=== PATIENT | female | born 1945 | race Caucasian/White ===

== ENCOUNTER 2017-01-23 12:34 | Observation (INO) | payer MEDICARE, BC ==
[~2017-01-23] VITALS: Ht 165.1 cm; Wt 104.0 kg
[~2017-01-23 12:34] MED LIST: ADULT ASPIRIN L81 MG PO; ALEVE220 M2 PO; ANTIVERT12.5 MG PO; ANTIVERT25 MG PO; ASPIRIN EC325 MG PO; ASPIRIN EC81 MG PO; CARB/LEVO1 TA5 PO; CENTRUM SILVER1 TAB PO; CIPRO XR500 MG PO; CIPROFLOXACN500 MG PO; CYCLOBENZAPR10 MG PO; DOXYCYCL HYC100 MG PO; FLAGYL500 MG PO; FLEXERIL PO; HYDROCHL PO; HYDROCHLOROT25 MG PO; IMODIUM2 MG PO; INDERAL LA120 M1 PO; ISOSORB MONO30 MG PO; LEXAPRO10 MG PO; LEXAPRO20 MG PO; LISINOP/HCTZ1 TA2 PO; LISINOPRIL20 M1 PO; LISINOPRIL20 MG PO; LORTAB 7.5 PO; METRONIDAZOL500 MG PO; NITROSTAT0.4 MG SL; PERCOCET 10/31 COMBO PO; PHENERGAN25 MG/TAB PO; PROPRANOLOL PO; PROPRANOLOL120 MG PO; TRAMADOL HCL50 MG PO; ZESTRIL/PRI20 MG/TAB PO; ZOFRAN4 MG/TAB PO; [UNRECOGNIZED DRUG - CODE] MT
--- NOTE | 2017-01-23 12:34 | NUR ---
pt toroomf or treatmnt viaems
[2017-01-23 13:22] LABS: HEMATOCRIT 54.9 % (37.0-47.0); HEMOGLOBIN 18.1 g/dl (12.0-16.0); IMMATURE GRANULOCYTES 0.5 % (0.0-1.0); MEAN CELL VOLUME 88.8 fL CALC (80.0-100.0); MEAN CORPUSCULAR HGB 29.3 pG CALC (26.0-32.0); NEUT# 12.09 thou/uL (2.00-7.15); RED BLOOD COUNT 6.18 mill/uL (4.20-5.60)
[2017-01-23 13:41] LABS: ALBUMIN 4.7 g/dL (3.2-5.0); ALKALINE PHOSPHATASE 162 u/l (38-126); AMYLASE 101 u/l (30-110); ANION GAP 24 (6-22 (CALC)); BILIRUBIN, TOTAL 0.9 mg/dL (0.0-1.4); BUN 13 mg/dL (8-23); BUN/CREATININE RATIO 17 (12-20 (CALC)); CARBON DIOXIDE 21 mmol/l (22-30); CHLORIDE 100 mmol/l (95-108); CREATININE 0.7 mg/dL (0.5-1.0); GFR > 60 ML/MIN (>=60 (CALC)); GFR FOR AFR.AMER. > 60 ML/MIN (>=60 (CALC)); GLUCOSE 152 mg/dL (82-115); LIPASE 276 u/l (23-300); POTASSIUM 5.3 mmol/l (3.5-5.1); SGOT/AST 35 u/l (9-36); SGPT/ALT 19 u/l (11-66); SODIUM 140 mmol/l (137-146); TOTAL PROTEIN 8.8 g/dL (6.3-8.2)
[2017-01-23 13:53] LABS: MYOGLOBIN 53 ng/mL (0 - 62)
[2017-01-23] MEDS ORDERED: MELOXICAM15 MG PO (15:25)
--- NOTE | 2017-01-23 15:53 | NUR ---
PT AND VISITOR UPDATED ON KNOWN RESULTS THEY CAME UP, PT AWARE OF PENDING ADMISSION.
[2017-01-23 16:45] VITALS: BP 158/91
--- NOTE | 2017-01-23 16:49 | NUR ---
PT TAKEN TO ROOM 273 WITHOUT INCIDENT, REPORT WAS TO SWAPNIL WILSON.
--- NOTE | 2017-01-23 17:00 | NUR ---
PT ARRIVED VIA STRETCHER ACCOMPANIED BY STAFF. IV SITE IS FREE FROM REDNESS OR EDEMA. PT NEEDED ANGELI CARE WHEN SHE ARRIVED.
--- NOTE | 2017-01-23 17:15 | NUR ---
ASSESSMENT IS COMPLETED NO DISTRESS NOTED. IV SITE IS FREE FROM REDNESS OR EDMEA. CONTINUE TO OSBERVE AND MONTIOR.
--- NOTE | 2017-01-23 17:45 | NUR ---
SPOKE WITH RE: MEAL FOR PT. NEW ORDER FOR FULL LIQUID DIET. INFORMED PT.
[2017-01-23 18:55] VITALS: BP 156/88
--- NOTE | 2017-01-23 21:00 | NUR ---
PT ASSISTED FROM SHOWER TO BED WITH STEADY GAIT;NEW GOWN AND LINENS PROVIDED;IV SITE TO RFA AND EMS SITE TO LFA FLUSHED AND PATENT;TELE MONITOR IN PLACE READING SR 71;PT REQUESTS PRN PAIN MEDICATION FOR RIGHT KNEE PAIN RATING 6/10 ON THE PAIN SCALE;PT TO BE MEDICATED ACCORDINGLY PER MD ORDERS;ASSESSMENT COMPLETED;SKIN INTACT;PT RE-EDUCATED ON ROOM AND CALL LIGHT SYSTEM AND VERBALIZES UNDERSTANDING;PT DENIES ANY OTHER NEEDS AT THIS TIME;SAFETY PRECAUTIONS REINFORCED;PT TOLD TO CALL FOR ASSISTANCE IF NEEDED;BED IN LOWEST POSITION WITH CALL LIGHT IN REACH;WILL CONTINUE TO MONITOR
--- NOTE | 2017-01-23 23:30 | NUR ---
PT APPEARS TO BE SLEEPING IN SEMI FOWLERS POSITION;NO S/S OF DISTRESS NOTED;RESPIRATIONS EVEN AND UNLABORED ON RA;IV FLUIDS INFUSING WELL TO LH;TELE MONITOR IN PLACE;BED IN LOWEST POSITION WITH CALL LIGHT IN REACH;WILL CONTINUE TO MONITOR
[2017-01-24] VITALS: BP 153/80
--- NOTE | 2017-01-24 03:45 | NUR ---
PT APPEARS TO BE SLEEPING IN SEMI FOWLERS POSITION;IV FLUIDS INFUSING WELL AT THIS TIME;TELE MONITOR IN PLACE;NO S/S OF DISTRESS NOTED;RESPIRATIONS EVEN AND UNLABORED ON RA;FALL PRECAUTIONS IN PLACE;BED IN LOWEST POSITION WITH CALL LIGHT IN REACH;WILL CONTINUE TO MONITOR
[2017-01-24 04:10] VITALS: BP 164/77
[2017-01-24 04:59] LABS: HEMATOCRIT 41.3 % (37.0-47.0); HEMOGLOBIN 13.4 g/dl (12.0-16.0); IMMATURE GRANULOCYTES 0.3 % (0.0-1.0); MEAN CORPUSCULAR HGB 29.8 pG CALC (26.0-32.0); MEAN CORPUSCULAR HGB CONC 32.4 g/L CALC (32.0-36.0); NEUT# 9.04 thou/uL (2.00-7.15); RED BLOOD COUNT 4.49 mill/uL (4.20-5.60); RED CELL DISTRI WIDTH 12.9 % (11.5-15.5)
[2017-01-24 05:14] LABS: ANION GAP 13 (6-22 (CALC)); BUN 12 mg/dL (8-23); BUN/CREATININE RATIO 20 (12-20 (CALC)); CALCIUM 9.1 mg/dL (8.4-10.2); CARBON DIOXIDE 22 mmol/l (22-30); CHLORIDE 106 mmol/l (95-108); CREATININE 0.6 mg/dL (0.5-1.0); GFR > 60 ML/MIN (>=60 (CALC)); GFR FOR AFR.AMER. > 60 ML/MIN (>=60 (CALC)); GLUCOSE 90 mg/dL (82-115); POTASSIUM 4.2 mmol/l (3.5-5.1); SODIUM 137 mmol/l (137-146)
[2017-01-24] MEDS ORDERED: CIPROFLOXACN500 MG PO (06:48)
[2017-01-24] MEDS ORDERED: METRONIDAZOL500 MG PO (06:49)
--- NOTE | 2017-01-24 07:00 | NUR ---
SHIFT CHANGE REPORT FROM FRANSISCO LÓPEZ AWAKE ALERT AND ORIENTED SITTING UP IN RECLINER, NO C/O DISCOMFORT AT THIS TIME, TELE MONITOR IN PLACE. CALL LEE IN REACH.
[2017-01-24] MEDS ORDERED: ZOFRAN ODT4 MG PO (07:52)
[2017-01-24 08:23] VITALS: BP 141/89
[2017-01-24 08:27] VITALS: BP 141/89
[2017-01-24 09:54] LABS: URINE BILIRUBIN - DIPSTICK NEGATIVE (NEGATIVE); URINE BLOOD DIPSTICK NEGATIVE (NEGATIVE); URINE CLARITY CLEAR; URINE COLOR YELLOW; URINE GLUCOSE - DIPSTICK NEGATIVE (NEGATIVE); URINE KETONE NEGATIVE (NEGATIVE); URINE LEUK ESTERASE NEGATIVE (NEGATIVE); URINE NITRITE - DIPSTICK NEGATIVE (Negative); URINE PROTEIN - DIPSTICK NEGATIVE (NEG-TRACE); URINE UROBILINOGEN - DIPSTICK 0.2 E.U./dL (0.2)
--- NOTE | 2017-01-24 11:06 | NUR ---
Discharge instructions given. Patient verbalizes understanding of same. Discharged in good condition via Wheelchair to Home with family. All belongings sent with pt.
== END 2017-01-24 11:05 | disposition home or self-care (01) ==
LOC: ENPENDDIS → ED 12:34 → ED-I 15:23 → ED 15:44 → MS2 15:45
PROVIDERS: Emergency Medicine; ADMIT Internal Medicine; ATTEND Internal Medicine
DX: K57.32 Diverticulitis of large intestine without perforation or abscess without bleeding (principal); I10 Essential (primary) hypertension; E11.9 Type 2 diabetes mellitus without complications; F32.9 Major depressive disorder, single episode, unspecified; M19.90 Unspecified osteoarthritis, unspecified site; G25.0 Essential tremor
CPT/HCPCS: J1650; Q9967

== ENCOUNTER 2017-04-19 10:29 | Inpatient (IN) | payer MEDICARE, BC ==
[~2017-04-19] VITALS: Ht 165.1 cm; Wt 104.6 kg
[2017-04-19] VITALS (10 sets, daily range): BP systolic 117–156; BP diastolic 68–100
[~2017-04-19 10:29] MED LIST changes: +MELOXICAM15 MG PO; +ZOFRAN ODT4 MG PO
[2017-04-19 11:04] LABS: HEMATOCRIT 46.3 % (37.0-47.0); IMMATURE GRANULOCYTES 0.2 % (0.0-1.0); MEAN CELL VOLUME 90.3 fL CALC (80.0-100.0); MEAN CORPUSCULAR HGB 29.2 pG CALC (26.0-32.0); MEAN CORPUSCULAR HGB CONC 32.4 g/L CALC (32.0-36.0); NEUT# 8.4 thou/uL (2.00-7.15); RED BLOOD COUNT 5.13 mill/uL (4.20-5.60); RED CELL DISTRI WIDTH 13.2 % (11.5-15.5)
[2017-04-19 11:19] LABS: PROTHROMBIN TIME 10.6 SECONDS (9.0-12.5)
[2017-04-19 11:22] LABS: ALBUMIN 4.1 g/dL (3.2-5.0); ALKALINE PHOSPHATASE 145 u/l (38-126); ANION GAP 14 (6-22 (CALC)); BILIRUBIN, TOTAL 0.6 mg/dL (0.0-1.4); BUN 18 mg/dL (8-23); BUN/CREATININE RATIO 31 (12-20 (CALC)); CALCIUM 9.3 mg/dL (8.4-10.2); CARBON DIOXIDE 25 mmol/l (22-30); CHLORIDE 103 mmol/l (95-108); CREATININE 0.6 mg/dL (0.5-1.0); GFR > 60 ML/MIN (>=60 (CALC)); GFR FOR AFR.AMER. > 60 ML/MIN (>=60 (CALC)); GLUCOSE 117 mg/dL (82-115); POTASSIUM 4.4 mmol/l (3.5-5.1); SGOT/AST 37 u/l (9-36); SGPT/ALT 42 u/l (11-66); SODIUM 138 mmol/l (137-146); TOTAL PROTEIN 7.6 g/dL (6.3-8.2)
[2017-04-19 11:34] LABS: MYOGLOBIN 31 ng/mL (0 - 62)
[2017-04-19 12:12] LABS: URINE BILIRUBIN - DIPSTICK NEGATIVE (NEGATIVE); URINE BLOOD DIPSTICK NEGATIVE (NEGATIVE); URINE CLARITY CLEAR; URINE COLOR YELLOW; URINE GLUCOSE - DIPSTICK NEGATIVE (NEGATIVE); URINE KETONE NEGATIVE (NEGATIVE); URINE LEUK ESTERASE NEGATIVE (NEGATIVE); URINE NITRITE - DIPSTICK NEGATIVE (Negative); URINE PH 5.5 (4.5-8.0); URINE PROTEIN - DIPSTICK NEGATIVE (NEG-TRACE); URINE SPECIFIC GRAVITY <=1.005; URINE UROBILINOGEN - DIPSTICK 0.2 E.U./dL (0.2)
[2017-04-20] VITALS (15 sets, daily range): BP systolic 105–167; BP diastolic 50–100
[2017-04-20 06:04] LABS: HEMATOCRIT 44.1 % (37.0-47.0); HEMOGLOBIN 14.5 g/dl (12.0-16.0); IMMATURE GRANULOCYTES 0.2 % (0.0-1.0); MEAN CELL VOLUME 90.7 fL CALC (80.0-100.0); MEAN CORPUSCULAR HGB 29.8 pG CALC (26.0-32.0); MEAN CORPUSCULAR HGB CONC 32.9 g/L CALC (32.0-36.0); NEUT# 7.51 thou/uL (2.00-7.15); RED BLOOD COUNT 4.86 mill/uL (4.20-5.60); RED CELL DISTRI WIDTH 13.2 % (11.5-15.5)
[2017-04-20 06:17] LABS: ANION GAP 14 (6-22 (CALC)); BUN 11 mg/dL (8-23); BUN/CREATININE RATIO 22 (12-20 (CALC)); CALCIUM 9.1 mg/dL (8.4-10.2); CALCULATED LDLCHOLESTEROL 88 mg/dL (62-129 (CALC)); CARBON DIOXIDE 25 mmol/l (22-30); CHLORIDE 103 mmol/l (95-108); CHOLESTEROL HDL RATIO 3.9 (<4.4 (CALC)); CREATININE 0.5 mg/dL (0.5-1.0); GFR > 60 ML/MIN (>=60 (CALC)); GFR FOR AFR.AMER. > 60 ML/MIN (>=60 (CALC)); GLUCOSE 115 mg/dL (82-115); HDL CHOLESTEROL 41 mg/dL (>=40); POTASSIUM 4.1 mmol/l (3.5-5.1); SODIUM 138 mmol/l (137-146); TOTAL CHOLESTEROL 157 mg/dl (0-199); TOTAL TRIGLYCERIDES 143 mg/dl (30-149); VLDL CHOLESTROL 29 mg/dl (1-41 (CALC))
[2017-04-20] MEDS ORDERED: DILTIAZEM CD300 MG PO (13:45)
[2017-04-20] MEDS ORDERED: ELIQUIS2.5 MG PO (13:45)
== END 2017-04-20 16:45 | disposition home or self-care (01) | DRG 310 ==
LOC: ENPENDDIS → ED 10:29 → ED-I 10:46 → ED 10:46 → ED-I 12:17 → ED 13:31 → MS2 13:32 → ICU 16:25
PROVIDERS: Emergency Medicine; ADMIT Internal Medicine; ATTEND Internal Medicine
DX: I48.92 Unspecified atrial flutter (principal); I10 Essential (primary) hypertension; M19.90 Unspecified osteoarthritis, unspecified site; F32.9 Major depressive disorder, single episode, unspecified; G47.33 Obstructive sleep apnea (adult) (pediatric); Z91.19 Patient's noncompliance with other medical treatment and regimen; Z79.82 Long term (current) use of aspirin
CPT/HCPCS: J1650

== ENCOUNTER 2017-12-30 18:19 | Inpatient (IN) | payer MEDICARE, BC ==
[~2017-12-30] VITALS: Ht 165.1 cm; Wt 100.8 kg
[~2017-12-30 18:19] MED LIST changes: +DILTIAZEM CD300 MG PO; +ELIQUIS2.5 MG PO
[2017-12-30 19:09] LABS: HEMATOCRIT 47.1 % (37.0-47.0); HEMOGLOBIN 15.2 g/dl (12.0-16.0); IMMATURE GRANULOCYTES 0.3 % (0.0-1.0); MEAN CELL VOLUME 88.7 fL CALC (80.0-100.0); MEAN CORPUSCULAR HGB 28.6 pG CALC (26.0-32.0); MEAN CORPUSCULAR HGB CONC 32.3 g/L CALC (32.0-36.0); NEUT# 7.48 thou/uL (2.00-7.15); RED BLOOD COUNT 5.31 mill/uL (4.20-5.60); RED CELL DISTRI WIDTH 13.6 % (11.5-15.5)
[2017-12-30 19:16] LABS: ANION GAP 17 (6-22 (CALC)); BUN 13 mg/dL (8-23); BUN/CREATININE RATIO 22 (12-20 (CALC)); CARBON DIOXIDE 25 mmol/l (22-30); CHLORIDE 102 mmol/l (95-108); CREATININE 0.6 mg/dL (0.5-1.0); GFR > 60 ML/MIN (>=60 (CALC)); GFR FOR AFR.AMER. > 60 ML/MIN (>=60 (CALC)); POTASSIUM 4.3 mmol/l (3.5-5.1); SODIUM 140 mmol/l (137-146)
[2017-12-30 22:00] VITALS: BP 154/84
[2017-12-30 22:10] VITALS: BP 154/84
[2017-12-30 22:28] LABS: URINE BILIRUBIN - DIPSTICK NEGATIVE (NEGATIVE); URINE BLOOD DIPSTICK NEGATIVE (NEGATIVE); URINE COLOR YELLOW; URINE GLUCOSE - DIPSTICK NEGATIVE (NEGATIVE); URINE KETONE TRACE mg/dL (NEGATIVE); URINE LEUK ESTERASE NEGATIVE (NEGATIVE); URINE NITRITE - DIPSTICK NEGATIVE (Negative); URINE PH 7.5 (4.5-8.0); URINE PROTEIN - DIPSTICK NEGATIVE (NEG-TRACE); URINE UROBILINOGEN - DIPSTICK 0.2 E.U./dL (0.2)
[2017-12-30 22:36] LABS: URINE CLARITY CLEAR
[2017-12-31 00:24] VITALS: BP 147/67
[2017-12-31 04:19] VITALS: BP 126/68
[2017-12-31 05:20] VITALS: BP 126/68
[2017-12-31 06:09] LABS: HEMATOCRIT 44.7 % (37.0-47.0); HEMOGLOBIN 14.6 g/dl (12.0-16.0); MEAN CELL VOLUME 89.8 fL CALC (80.0-100.0); MEAN CORPUSCULAR HGB 29.3 pG CALC (26.0-32.0); MEAN CORPUSCULAR HGB CONC 32.7 g/L CALC (32.0-36.0); RED BLOOD COUNT 4.98 mill/uL (4.20-5.60); RED CELL DISTRI WIDTH 13.6 % (11.5-15.5)
[2017-12-31 06:16] LABS: ANION GAP 14 (6-22 (CALC)); BUN 10 mg/dL (8-23); BUN/CREATININE RATIO 18 (12-20 (CALC)); CALCULATED LDLCHOLESTEROL 87 mg/dL (62-129 (CALC)); CARBON DIOXIDE 25 mmol/l (22-30); CHLORIDE 104 mmol/l (95-108); CHOLESTEROL HDL RATIO 4.2 (<4.4 (CALC)); CREATININE 0.5 mg/dL (0.5-1.0); GFR > 60 ML/MIN (>=60 (CALC)); GFR FOR AFR.AMER. > 60 ML/MIN (>=60 (CALC)); HDL CHOLESTEROL 39 mg/dL (>=40); POTASSIUM 3.6 mmol/l (3.5-5.1); SODIUM 140 mmol/l (137-146); TOTAL CHOLESTEROL 163 mg/dl (0-199); TOTAL TRIGLYCERIDES 184 mg/dl (30-149); VLDL CHOLESTROL 37 mg/dl (0-48 (CALC))
[2017-12-31 06:23] LABS: INTERNATIONAL NORMALIZED RATIO 2.9 RATIO (0.7-1.3); PROTHROMBIN TIME 33.5 SECONDS (9.0-12.5)
[2017-12-31 07:35] VITALS: BP 121/72
[2017-12-31 11:16] VITALS: BP 126/79
[2017-12-31] MEDS ORDERED: COUMADIN5 MG PO (11:38)
[2017-12-31] MEDS ORDERED: SLOW-MAG PO (12:07)
[2017-12-31] MEDS ORDERED: METO50TA52 PO (12:24)
[2017-12-31] MEDS ORDERED: WARFARIN4 MG PO (12:24)
[2017-12-31] MEDS ORDERED: DIGOXIN0.125 MG PO (12:25)
[2017-12-31] MEDS ORDERED: ANTIVERT PO (13:36)
== END 2017-12-31 14:24 | disposition home or self-care (01) | DRG 149 ==
LOC: ED 18:19 → ED-I 20:20 → ED 21:00 → MS2 21:01
PROVIDERS: Family Medicine; ADMIT Internal Medicine; ATTEND Internal Medicine
DX: R42 Dizziness and giddiness (principal); I48.2 Chronic atrial fibrillation; I10 Essential (primary) hypertension; F32.9 Major depressive disorder, single episode, unspecified; G47.33 Obstructive sleep apnea (adult) (pediatric); G25.0 Essential tremor; I16.0 Hypertensive urgency; M19.90 Unspecified osteoarthritis, unspecified site; Z79.01 Long term (current) use of anticoagulants

== ENCOUNTER → 2018-12-09 | Outpatient (REF) | payer MEDICARE, BC ==
[~2018-12-09] MED LIST changes: +ANTIVERT PO; +COUMADIN5 MG PO; +DIGOXIN0.125 MG PO; +METO50TA52 PO; +SLOW-MAG PO; +WARFARIN4 MG PO
[2018-12-09 08:13] LABS: HEMATOCRIT 47.5 % (37.0-47.0); HEMOGLOBIN 15.4 g/dl (12.0-16.0); MEAN CELL VOLUME 93.7 fL CALC (80.0-100.0); MEAN CORPUSCULAR HGB 30.4 pG CALC (26.0-32.0); MEAN CORPUSCULAR HGB CONC 32.4 g/L CALC (32.0-36.0); RED BLOOD COUNT 5.07 mill/uL (4.20-5.60); RED CELL DISTRI WIDTH 13.1 % (11.5-15.5)
[2018-12-09 08:31] LABS: ANION GAP 14 (6-22 (CALC)); BUN 15 mg/dL (8-23); BUN/CREATININE RATIO 25 (12-20 (CALC)); CALCULATED LDLCHOLESTEROL 109 mg/dL (62-129 (CALC)); CARBON DIOXIDE 26 mmol/l (22-30); CHLORIDE 101 mmol/l (95-108); CHOLESTEROL HDL RATIO 4.3 (<4.4 (CALC)); CREATININE 0.6 mg/dL (0.5-1.0); GFR > 60 ML/MIN (>=60 (CALC)); GFR FOR AFR.AMER. > 60 ML/MIN (>=60 (CALC)); HDL CHOLESTEROL 44 mg/dL (>=40); POTASSIUM 4.1 mmol/l (3.5-5.1); SODIUM 137 mmol/l (137-146); TOTAL CHOLESTEROL 189 mg/dl (0-199); TOTAL TRIGLYCERIDES 175 mg/dl (30-149); VLDL CHOLESTROL 35 mg/dl (0-48 (CALC))
[2018-12-09 08:37] LABS: INTERNATIONAL NORMALIZED RATIO 2.2 RATIO (0.7-1.3); PROTHROMBIN TIME 22.7 SECONDS (9.0-12.5)
== END | disposition home or self-care (01) ==
LOC: LAB 07:47
PROVIDERS: ATTEND Nurse Practitioner Family
DX: E11.29 Type 2 diabetes mellitus with other diabetic kidney complication (principal); E11.42 Type 2 diabetes mellitus with diabetic polyneuropathy; I10 Essential (primary) hypertension; I48.0 Paroxysmal atrial fibrillation; Z79.01 Long term (current) use of anticoagulants

== ENCOUNTER 2019-08-16 18:33 | Observation (INO) | payer MEDICARE, BC ==
[2019-08-15 23:30] VITALS: BP 152/101
[~2019-08-16] VITALS: Ht 165.1 cm; Wt 100.5 kg
[2019-08-16 19:19] LABS: HEMATOCRIT 45.6 % (37.0-47.0); HEMOGLOBIN 14.6 g/dl (12.0-16.0); IMMATURE GRANULOCYTES 0.5 % (0.0-5.0); MEAN CELL VOLUME 92.9 fL CALC (80.0-100.0); MEAN CORPUSCULAR HGB 29.7 pG CALC (26.0-32.0); NEUT# 6.82 thou/uL (2.00-7.15); RED BLOOD COUNT 4.91 mill/uL (4.20-5.60); RED CELL DISTRI WIDTH 13.3 % (11.5-15.5)
[2019-08-16 19:33] LABS: ALBUMIN 4.1 g/dL (3.2-5.0); ALKALINE PHOSPHATASE 152 u/l (38-126); AMYLASE 59 u/l (30-110); BUN 14 mg/dL (8-23); BUN/CREATININE RATIO 20 (12-20 (CALC)); CARBON DIOXIDE 25 mmol/l (22-30); CHLORIDE 98 mmol/l (95-108); CREATININE 0.7 mg/dL (0.5-1.0); GFR > 60 ML/MIN (>=60 (CALC)); GFR FOR AFR.AMER. > 60 ML/MIN (>=60 (CALC)); LIPASE 197 u/l (23-300); SGOT/AST 34 u/l (9-36); SODIUM 139 mmol/l (137-146); TOTAL PROTEIN 7.6 g/dL (6.3-8.2)
[2019-08-16 19:34] LABS: ANION GAP 20 (6-22 (CALC)); BILIRUBIN, TOTAL 0.9 mg/dL (0.0-1.4); POTASSIUM 3.5 mmol/l (3.5-5.1)
[2019-08-16 19:45] LABS: MYOGLOBIN 40 ng/mL (0 - 62)
[2019-08-16 19:51] LABS: PROTHROMBIN TIME 10.5 SECONDS (9.0-12.5)
[2019-08-16 22:49] LABS: URINE BILIRUBIN - DIPSTICK NEGATIVE (NEGATIVE); URINE COLOR YELLOW; URINE GLUCOSE - DIPSTICK NEGATIVE (NEGATIVE); URINE KETONE NEGATIVE (NEGATIVE); URINE LEUK ESTERASE NEGATIVE (NEGATIVE); URINE PROTEIN - DIPSTICK NEGATIVE (NEG-TRACE); URINE SPECIFIC GRAVITY <=1.005; URINE UROBILINOGEN - DIPSTICK 0.2 E.U./dL (0.2)
[2019-08-16 22:55] LABS: URINE NITRITE - DIPSTICK POSITIVE (Negative)
[2019-08-16 22:56] LABS: URINE BLOOD DIPSTICK NEGATIVE (NEGATIVE)
[2019-08-16 22:58] LABS: URINE BACTERIA MODERATE hpf; URINE EPITHELIAL CELLS FEW EPI/hpf (0-FEW)
[2019-08-16 23:15] VITALS: BP 153/101
[2019-08-16 23:30] VITALS: BP 174/95
[2019-08-16 23:45] VITALS: BP 185/119
[2019-08-17] VITALS (11 sets, daily range): BP systolic 119–188; BP diastolic 70–101
[2019-08-17 05:06] LABS: IMMATURE GRANULOCYTES 0.4 % (0.0-5.0); MEAN CELL VOLUME 93.2 fL CALC (80.0-100.0); MEAN CORPUSCULAR HGB 29.5 pG CALC (26.0-32.0); MEAN CORPUSCULAR HGB CONC 31.7 g/L CALC (32.0-36.0); NEUT# 6.88 thou/uL (2.00-7.15); RED BLOOD COUNT 4.13 mill/uL (4.20-5.60); RED CELL DISTRI WIDTH 13.4 % (11.5-15.5)
[2019-08-17 05:07] LABS: HEMATOCRIT 38.5 % (37.0-47.0); HEMOGLOBIN 12.2 g/dl (12.0-16.0)
[2019-08-17 05:26] LABS: ALKALINE PHOSPHATASE 99 u/l (38-126); ANION GAP 9 (6-22 (CALC)); BUN 11 mg/dL (8-23); BUN/CREATININE RATIO 16 (12-20 (CALC)); CARBON DIOXIDE 25 mmol/l (22-30); CHLORIDE 109 mmol/l (95-108); CREATININE 0.7 mg/dL (0.5-1.0); GFR > 60 ML/MIN (>=60 (CALC)); GFR FOR AFR.AMER. > 60 ML/MIN (>=60 (CALC)); SGOT/AST 28 u/l (9-36); SODIUM 140 mmol/l (137-146)
[2019-08-17 05:30] LABS: ALBUMIN 2.9 g/dL (3.2-5.0); BILIRUBIN, TOTAL 0.5 mg/dL (0.0-1.4); TOTAL PROTEIN 5.8 g/dL (6.3-8.2)
[2019-08-17] MEDS ORDERED: SINEMET CR PO (13:34)
[2019-08-17] MEDS ORDERED: CENTRUM SILVER1 TA1 PO (13:35)
[2019-08-17] MEDS ORDERED: CARTIA XT120 MG PO (13:36)
[2019-08-17] MEDS ORDERED: TRAMADOL HYDROC50 M1 PO (13:36)
[2019-08-17] MEDS ORDERED: DIGOXIN0.125 MG PO (13:37)
[2019-08-17] MEDS ORDERED: METOPROLOL50 M1 PO (13:37)
[2019-08-17] MEDS ORDERED: LISINOPRIL20 M1 PO (13:38)
[2019-08-17] MEDS ORDERED: LIPITOR20 M1 PO (13:40)
[2019-08-17] MEDS ORDERED: CLONIDINE0.1 MG PO (13:42)
[2019-08-17] MEDS ORDERED: SERTRALINE50 MG PO (13:43)
[2019-08-17] MEDS ORDERED: SLOW-MAG PO (13:44)
[2019-08-17] MEDS ORDERED: AMIODARONE200 MG PO (14:01)
[2019-08-17] MEDS ORDERED: ASPIRIN ADULT L81 M2 PO (14:03)
[2019-08-18] VITALS (8 sets, daily range): BP systolic 145–186; BP diastolic 72–100
[2019-08-18 05:09] LABS: HEMOGLOBIN 12.5 g/dl (12.0-16.0); MEAN CELL VOLUME 95.5 fL CALC (80.0-100.0); MEAN CORPUSCULAR HGB 29.8 pG CALC (26.0-32.0); MEAN CORPUSCULAR HGB CONC 31.3 g/L CALC (32.0-36.0); RED BLOOD COUNT 4.19 mill/uL (4.20-5.60)
[2019-08-18 05:23] LABS: ANION GAP 11 (6-22 (CALC)); BUN 7 mg/dL (8-23); BUN/CREATININE RATIO 11 (12-20 (CALC)); CARBON DIOXIDE 22 mmol/l (22-30); CHLORIDE 112 mmol/l (95-108); CREATININE 0.6 mg/dL (0.5-1.0); GFR > 60 ML/MIN (>=60 (CALC)); GFR FOR AFR.AMER. > 60 ML/MIN (>=60 (CALC)); POTASSIUM 3.4 mmol/l (3.5-5.1); SODIUM 141 mmol/l (137-146)
[2019-08-19 00:12] VITALS: BP 158/96
[2019-08-19 05:05] VITALS: BP 158/92
[2019-08-19 06:31] VITALS: BP 152/89
[2019-08-19 08:37] VITALS: BP 180/104
== END 2019-08-19 11:12 | disposition home health service (06) ==
LOC: ED 18:33 → ED-I 21:49 → ED 22:10 → ICU 22:11 → MS2 22:11 → ICU 22:11 → MS2 08-17 09:35
PROVIDERS: Emergency Medicine; Internal Medicine; ADMIT Internal Medicine; ATTEND Internal Medicine
PROC: 0T9B70Z Drainage of Bladder with Drainage Device, Via Natural or Artificial Opening (ICD-10-PCS; principal; 2019-08-16)
DX: R07.2 Precordial pain (principal); I16.0 Hypertensive urgency; I10 Essential (primary) hypertension; K52.9 Noninfective gastroenteritis and colitis, unspecified; E11.9 Type 2 diabetes mellitus without complications; R68.0 Hypothermia, not associated with low environmental temperature; E87.2 Acidosis; I25.10 Atherosclerotic heart disease of native coronary artery without angina pectoris; I48.20 Chronic atrial fibrillation, unspecified; E87.6 Hypokalemia; M19.90 Unspecified osteoarthritis, unspecified site; G47.33 Obstructive sleep apnea (adult) (pediatric); G25.0 Essential tremor; Z95.1 Presence of aortocoronary bypass graft
CPT/HCPCS: G0378; J2060; Q9967; S0164

== ENCOUNTER 2020-04-04 11:36 | Emergency (ER) | payer MEDICARE, BC ==
[~2020-04-04] VITALS: Ht 165.1 cm; Wt 93.1 kg
[~2020-04-04 11:36] MED LIST changes: +AMIODARONE200 MG PO; +ASPIRIN ADULT L81 M2 PO; +CARTIA XT120 MG PO; +CENTRUM SILVER1 TA1 PO; +CLONIDINE0.1 MG PO; +LIPITOR20 M1 PO; +METFORMIN HCL1000 MG PO; +SERTRALINE50 MG PO; +SINEMET 25/2501 TAB PO; +SINEMET PO; +TOPROL XL25 M1 PO; +TRAMADOL HYDROC50 M1 PO; +TYLENOL500 MG PO
[2020-04-04] MEDS ORDERED: CALTRAT1 PO (11:54)
[2020-04-04] MEDS ORDERED: CLOPIDOGREL75 MG PO (11:55)
[2020-04-04 12:27] LABS: HEMATOCRIT 39.8 % (37.0-47.0); HEMOGLOBIN 13.2 g/dl (12.0-16.0); IMMATURE GRANULOCYTES 0.3 % (0.0-5.0); MEAN CELL VOLUME 90.7 fL CALC (80.0-100.0); MEAN CORPUSCULAR HGB 30.1 pG CALC (26.0-32.0); MEAN CORPUSCULAR HGB CONC 33.2 g/dL CAL (32.0-36.0); NEUT# 5.73 thou/uL (2.00-7.15); RED BLOOD COUNT 4.39 mill/uL (4.20-5.60); RED CELL DISTRI WIDTH 13.2 % (11.5-15.5)
[2020-04-04 13:57] VITALS: BP 164/71
[2020-05-09] MEDS ORDERED: ZOLOFT50 MG PO (07:39)
[2020-05-09] MEDS ORDERED: ONDANSETRON4 MG PO (07:39)
== END 2020-04-04 14:09 | disposition home or self-care (01) ==
LOC: ED 11:36
PROVIDERS: Emergency Medicine
DX: S01.81XA Laceration without foreign body of other part of head, initial encounter (principal); S50.311A Abrasion of right elbow, initial encounter; S80.211A Abrasion, right knee, initial encounter; S00.31XA Abrasion of nose, initial encounter; I10 Essential (primary) hypertension; G20 Parkinson's disease; E11.9 Type 2 diabetes mellitus without complications; W01.0XXA Fall on same level from slipping, tripping and stumbling without subsequent striking against object, initial encounter; Y92.000 Kitchen of unspecified non-institutional (private) residence as the place of occurrence of the external cause; Z79.84 Long term (current) use of oral hypoglycemic drugs

== ENCOUNTER 2020-06-12 20:34 | Observation (INO) | payer MEDICARE, BC ==
[~2020-06-12] VITALS: Ht 165.1 cm; Wt 95.0 kg
[~2020-06-12 20:34] MED LIST changes: +CALTRAT1 PO; +CLOPIDOGREL75 MG PO; +ONDANSETRON4 MG PO; +ZOLOFT50 MG PO
--- NOTE | 2020-06-12 20:34 | NUR ---
PT TO ROOM 10 BY EMS FOR SUDDEN ONSET OF DIARRHEA AND GENERAL WEAKNESS.
--- NOTE | 2020-06-12 21:00 | NUR ---
PT ARRIVES BY EMS WITH COMPLAINTS OF WEAKNESS AND DIZZINESS. PT DENIES NAUSEA BUT BECAME INCONTINANT OF FECES/DIARRHEA SHE ARRIVED. AFIBRILE. STATES HAVING NAUSEA BEFORE WITH NO VOMIT. DIARRHEA EPISODES OCCURE UNCOUNTABLE AMTS OF TIMES DISCRIBED BY PT. PT IS ON 2 L OF O2 AND SPO2 AT 92% AOX4. ROM AND STRENGTH IN ALL EXTREM. NIH OF O. WILL CONTINUE TO MONTIOR.
[2020-06-12 21:06] LABS: HEMATOCRIT 44.8 % (37.0-47.0); HEMOGLOBIN 14.3 g/dl (12.0-16.0); IMMATURE GRANULOCYTES 0.6 % (0.0-5.0); MEAN CELL VOLUME 92.9 fL CALC (80.0-100.0); MEAN CORPUSCULAR HGB 29.7 pG CALC (26.0-32.0); MEAN CORPUSCULAR HGB CONC 31.9 g/dL CAL (32.0-36.0); NEUT# 6.62 thou/uL (2.00-7.15); RED BLOOD COUNT 4.82 mill/uL (4.20-5.60)
[2020-06-12 21:27] LABS: ALBUMIN 3.7 g/dL (3.2-5.0); CREATININE 1.1 mg/dL (0.5-1.0); POTASSIUM 3.4 mmol/l (3.5-5.1); TOTAL PROTEIN 7.1 g/dL (6.3-8.2)
[2020-06-12 21:31] LABS: BILIRUBIN, TOTAL 0.9 mg/dL (0.0-1.4)
[2020-06-12] MEDS ORDERED: CARTIA XT300 MG PO (21:36)
[2020-06-12] MEDS ORDERED: GABAPENTIN100 MG PO (21:40)
--- NOTE | 2020-06-12 21:49 | NUR ---
GAVE REPORT TO PASCUAL
--- NOTE | 2020-06-12 21:51 | NUR ---
TOOK OVER PT CARE FROM TERI MURO. PT STILL CURRENTLY IN CT
--- NOTE | 2020-06-12 22:50 | NUR ---
NO DIARRHEA SINCE TAKING OVER SHIFT.
--- NOTE | 2020-06-12 23:35 | NUR ---
DR PEREZ IN TO GO OVER RESULTS WITH PT.
--- NOTE | 2020-06-13 00:20 | NUR ---
REPORT GIVEN TO TERI DE LA TORRE
--- NOTE | 2020-06-13 00:50 | NUR ---
RIGHT AFTER GIVING REPORT PT CALLED STATING SHE HAD AN ACCIDENT. CLEANED PT WHO ONLY HAS SMALL AMOUNT OF LIQUID STOOL. CHANGED GOWN AND BEDDING AND TRANSPORTED PT TO FLOOR. Admission Note Report Given to: TERI DE LA TORRE Transported by: Wheelchair X Stretcher Transported with: X Nurse Transporter X Patent IV O2 Risk Analyst Location: ICU X MS2
--- NOTE | 2020-06-13 00:50 | NUR ---
PT ARRIVED TO THE MED SURG UNIT UNIT VIA STRETCHER ACCOMPANIED BY ED NURSE. DOCUMENT REVIEWER, ORIENTING NURSE AND SILVERWARE SUPERVISOR IN W/PT. DOCUMENT REVIEWER ASSISTED PT TO RESTROOM AND BACK TO BED. MOD LOOSE LIGHT BROWN STOOL OUTPUT AT THIS TIME. PT W/UNSTEADY GAIT AMBULATED BACK TO BED W/1XSTANDBY ASSISTANCE. SILVERWARE SUPERVISOR OBTAINING V/S AND PT IS BEING ORIENTED TO ROOM, CALL SYSTEM, LIGHTS, BED AND TV.
[2020-06-13 01:00] VITALS: BP 168/87
--- NOTE | 2020-06-13 01:00 | NUR ---
ASSESSMENT AND VITALS COMPLETED. PT C/O OF GENERALIZED WEAKNESS AND DIARRHEA. RESPIRATIONS ARE EVEN AND UNLABORED WITH NO DISTRESS. NO SIGNS OF ANY PAIN OR DISCOMFORTS. HEART RHYTHUM IS AFIB. BOWEL SOUNDS REACTIVE IN ALL QUADRANTS WITH NO TENDERNESS. RADIAL AND PEDAL PULSES ARE STRONG WITH NORMAL CAPILLARY REFILL. SKIN IS WARM AND DRY. BILATERAL BRUISING NOTE ON ARMS. SCAPED SIGHT ON RIGHT KNEE. 2O G IV SITE IN THE RAC FLUSHED AND APPEARS HEALTHY. IV FLUIDS INFUSING AND RUNNING AT 125 PER HR. PT EDUCATED ON REMOTE CONTROLS AND CALL LEE. WILL CONTINUE TO OBSERVE.
[2020-06-13 01:52] VITALS: BP 140/87
[2020-06-13 04:00] VITALS: BP 185/112
--- NOTE | 2020-06-13 04:10 | NUR ---
PT BP ELEVATED. PT IS SHIVERING VISIBLY, REPORTS FEELING COLD. TEMP 97.3/98.6 ORAL WARMED BLANKETS ADDED AND ROOM TURNED TO WARM. PT DENIES ANY OTHER DISTRESS OR SYMPTOMS.
[2020-06-13 04:55] VITALS: BP 150/75
--- NOTE | 2020-06-13 05:03 | NUR ---
PT SLEEPING, BP REASSESSED MANUALLY BY PATIENT TRANSPORT ORDERLY. PT REPORTED FEELING BETTER, SHE IS NOT VISIBLY SHIVERING SHE WAS EARLIER. 4 BLANKETS ARE ON PT. TEMP ORAL IS 98.3
--- NOTE | 2020-06-13 06:27 | NUR ---
PT MEDICATED ORDERS PROVIDE W/PO ANTIBIOTIC THERAPY AND LAMITROL ORDERS ALLOW. PT IS SITTING ON BSC, REPORTS MULTIPLE STOOL OUTPUT. LEFT ON COMODE AT BEDSIDE PER REQUEST AND CALL LIGHT CLOSE. PT STATED SHE WILL CALL WHEN SHE IS READY TO GET TO BED.
--- NOTE | 2020-06-13 07:15 | NUR ---
REPORT RECEIVED FROM TERI DE LA TORRE;PT RESTING IN SEMI FOWLERS POSITION;RESPIRATIONS EVEN AND UNLABORED ON RA;PT DENIES ANY CURRENT PAIN OR NEEDS;IV SITE PATENT INFUSING NS WITH EASE PER ORDER;ACCUCHECK 112, NO COVERAGE NEEDED;PT DENIES ANY ADDITIONAL NEEDS AT THIS TIME;ENCOURAGED TO CALL FOR ASSISTANCE IF NEEDED;CONTACT PLUS PRECAUTIONS IN PLACE;CALL LIGHT IN REACH;WILL CONTINUE TO MONITOR
--- NOTE | 2020-06-13 07:53 | NUR ---
PT note Patient is screened for intervention and she has no needs at this time
--- NOTE | 2020-06-13 08:33 | NUR ---
AT BEDSIDE DISCUSSING POC.
[2020-06-13 09:17] LABS: HEMOGLOBIN 13.3 g/dl (12.0-16.0); IMMATURE GRANULOCYTES 0.4 % (0.0-5.0); MEAN CELL VOLUME 93.3 fL CALC (80.0-100.0); MEAN CORPUSCULAR HGB 29.6 pG CALC (26.0-32.0); MEAN CORPUSCULAR HGB CONC 31.7 g/dL CAL (32.0-36.0); NEUT# 8.52 thou/uL (2.00-7.15); RED BLOOD COUNT 4.5 mill/uL (4.20-5.60)
[2020-06-13 09:20] VITALS: BP 128/82
--- NOTE | 2020-06-13 09:20 | NUR ---
PT RESTING IN SEMI FOWLERS POSITION,A&O X3;VS OBTAINED AND ASSESSMENT COMPLETED;PT DENIES ANY CURRENT PAIN OR DISCOMFORTS,PAIN SCALE AND REPORTING EDUCATED;RESPIRATIONS EVEN AND UNLABORED,CLEAR ON RA;ABDOMEN DISTENDED/SOFT ON PALPATION AND HYPERACTIVE IN ALL4 QUADRANTS;STRONG PEDAL PULSES;SKIN INTACT;EMS #20G TO RAC INFUSING NS @125ML/HR,SITE APPEARS HEALTHY;PT REMAINS IN CONTACT PLUS ISOLATION DUE TO CDIFF DX;PT DENIES ANY ADDITIONAL NEEDS AT THIS TIME;EDUCATED ON NEED FOR URINE SAMPLE,PT VERBALIZES UNDERSTANDING;CALL LIGHT IN REACH;WILL CONTINUE TO MONITOR
[2020-06-13] MEDS ORDERED: FIRVANQ25 MG/ML PO (09:53)
[2020-06-13 10:02] LABS: ALBUMIN 3.2 g/dL (3.2-5.0); ALKALINE PHOSPHATASE 120 u/l (38-126); ANION GAP 12 (6-22 (CALC)); BILIRUBIN, TOTAL 0.6 mg/dL (0.0-1.4); BUN 17 mg/dL (8-23); BUN/CREATININE RATIO 20 (12-20 (CALC)); CARBON DIOXIDE 26 mmol/l (22-30); CHLORIDE 103 mmol/l (95-108); CREATININE 0.9 mg/dL (0.5-1.0); GFR > 60 ML/MIN (>=60 (CALC)); GFR FOR AFR.AMER. > 60 ML/MIN (>=60 (CALC)); SGOT/AST 28 u/l (9-36); SODIUM 138 mmol/l (137-146); TOTAL PROTEIN 5.9 g/dL (6.3-8.2)
--- NOTE | 2020-06-13 10:15 | NUR ---
CRITICAL LACTIC ACID RECEIVED OF 2.0 BY AL IN THE LAB.GENESIS ANRP NOTIFIED.
--- NOTE | 2020-06-13 12:00 | NUR ---
PT RESTING IN SEMI FOWLERS POSITION;RESPIRATIONS EVEN AND UNLABORED ON RA;PT DENIES ANY CURRENT PAIN OR DISCOMFORTS;IV SITE PATENT AND 500ML BOLUS ADMINISTERED AT THIS TIME PER ORDER;ABX ADMINISTERED WELL;ASSESSMENT REMAINS UNCHANGED AT THIS TIME;PT ENCOURAGED TO CALL FOR ASSISTANCE IF NEEDED;D/C HOME PENDING LAB WORK AT 1300;CALL LIGHT IN REACH;WILL CONTINUE TO MONITOR
--- NOTE | 2020-06-13 13:05 | NUR ---
LAB AT BEDSIDE
[2020-06-13 14:00] LABS: URINE BILIRUBIN - DIPSTICK NEGATIVE (NEGATIVE); URINE BLOOD DIPSTICK NEGATIVE (NEGATIVE); URINE COLOR YELLOW; URINE GLUCOSE - DIPSTICK NEGATIVE (NEGATIVE); URINE KETONE NEGATIVE (NEGATIVE); URINE LEUK ESTERASE NEGATIVE (NEGATIVE); URINE NITRITE - DIPSTICK NEGATIVE (Negative); URINE PROTEIN - DIPSTICK NEGATIVE (NEG-TRACE); URINE UROBILINOGEN - DIPSTICK 0.2 E.U./dL (0.2)
--- NOTE | 2020-06-13 14:05 | NUR ---
PT RESTING IN SEMI FOWLERS POSITION;RESPIRATIONS REMAIN EVEN AND UNLABORED ON RA;PT DENIES ANY CURRENT PAIN OR DISCOMFORTS;UA SAMPLE COLLECTED AT THIS TIME AND SENT TO LAB;DISCHARGE INSTRUCTIONS PROVIDED AND PT ENCOURAGED TO NOT TAKE ANITDIARRHEALS, TAKE ABX FOR 10 DAYS DIRECTED,BLAND DIET, KEEP WELL HYDRATED WITH PEDILYTE AND PRACTICE GOOD HAND HYGIENE; PT VERBALIZES UNDERSTANDING AND DENIES ANY ADDITIONAL QUESTIONS OR NEEDS;IV SITE REMOVED WITH CATHETER INTACT;HOME MEDICATIONS PROVIDED BACK TO PT AT THIS TIME;PT DENIES ANY ADDITIONAL NEEDS;WHEELCHAIR TO BE PROVIDED FOR D/C HOME;FAMILY TO TRANSPORT PT HOME;WILL CONTINUE TO MONITOR
--- NOTE | 2020-06-13 14:23 | NUR ---
Discharge instructions given. Patient verbalizes understanding of same. Discharged in stable condition via Wheelchair to Home with family. All belongings sent with pt. PT TRANSPORTED TO [facility] IN STABLE CONDITION VIA WHEELCHAIR ACCOMPANIED BY WRITTER,ALL BELONGINGS LEFT WITH PT. FAMILY TO TRANSPORT PT HOME.
--- NOTE | 2020-06-14 07:45 | NUR ---
PRELIMINARY BLOOD CULTURE RESULTS CALLED TO JORDANA CONTEH. 10/17 VIALS GROWING GRAM (+) COCCI. NO NEW ORDERS, WILL WAIT FOR FINAL RESULTS.
--- NOTE | 2020-06-15 09:22 | NUR ---
FINAL BLOOD CX SHOWS STAPH HOMINIS IN 1 BOTTLE, CONTAMINANT. RESULTS REPORTED TO JORDANA. NO F/U WARRANTED
== END 2020-06-13 14:23 | disposition home or self-care (01) ==
LOC: ED 20:34 → ED-I 23:28 → ED 23:43 → MS2 23:44
PROVIDERS: Family Medicine; Nurse Practitioner Family; ADMIT Internal Medicine; ATTEND Internal Medicine
DX: A04.72 Enterocolitis due to Clostridium difficile, not specified as recurrent (principal); I10 Essential (primary) hypertension; I48.91 Unspecified atrial fibrillation; G47.33 Obstructive sleep apnea (adult) (pediatric); R78.81 Bacteremia; Z95.1 Presence of aortocoronary bypass graft; Z20.828 Contact with and (suspected) exposure to other viral communicable diseases
CPT/HCPCS: G0378; J1650

== ENCOUNTER 2020-10-02 19:10 | Emergency (ER) | payer OTHER, MEDICARE, BC ==
[~2020-10-02] VITALS: Ht 165.1 cm; Wt 95.5 kg
[~2020-10-02 19:10] MED LIST changes: +CARTIA XT300 MG PO; +FIRVANQ25 MG/ML PO; +GABAPENTIN100 MG PO
[2020-10-02 19:55] VITALS: BP 183/78
== END 2020-10-02 19:55 | disposition home or self-care (01) | DRG 605 ==
LOC: ED 19:10
DX: S00.03XA Contusion of scalp, initial encounter (principal); S50.812A Abrasion of left forearm, initial encounter; I10 Essential (primary) hypertension; E11.9 Type 2 diabetes mellitus without complications; G20 Parkinson's disease; I48.91 Unspecified atrial fibrillation; G25.0 Essential tremor; V58.5XXA Driver of pick-up truck or van injured in noncollision transport accident in traffic accident, initial encounter; Z95.1 Presence of aortocoronary bypass graft; Z95.5 Presence of coronary angioplasty implant and graft

== ENCOUNTER 2022-04-19 13:29 | Observation (INO) | payer MEDICARE, BC ==
[~2022-04-19] VITALS: Ht 165.1 cm; Wt 102.0 kg
[2022-04-19] VITALS (11 sets, daily range): BP systolic 124–176; BP diastolic 67–140
[~2022-04-19 13:29] MED LIST changes: +DILTIAZEM HCL300 M1 PO; +KAPSPARGO SPRIN25 MG; +METAMUCIL28 % PO; +MYSOLINE50 M1 PO; +NITROGLYCERIN0.3 MG; +TRAMADOL HYDROC50 M1; +TURMERIC500 M1
--- NOTE | 2022-04-19 13:29 | NUR ---
PT TRANSFERRED TO ROOM 10 FROM EMS STRETCHER. PT DRY HEAVING, NAD NOTED. JORDANA STEAM TURBINE ASSEMBLER AT BEDSIDE
[2022-04-19 13:54] LABS: HEMATOCRIT 43.3 % (37.0-47.0); IMMATURE GRANULOCYTES 0.3 % (0.0-5.0); MEAN CELL VOLUME 93.5 fL CALC (80.0-100.0); MEAN CORPUSCULAR HGB 30.2 pG CALC (26.0-32.0); MEAN CORPUSCULAR HGB CONC 32.3 g/dL CAL (32.0-36.0); NEUT# 7.25 thou/uL (2.00-7.15); RED BLOOD COUNT 4.63 mill/uL (4.20-5.60); RED CELL DISTRI WIDTH 12.8 % (11.5-15.5)
[2022-04-19 14:07] LABS: ALBUMIN 3.7 g/dL (3.2-5.0); ALKALINE PHOSPHATASE 141 u/l (38-126); BUN 14 mg/dL (8-23); BUN/CREATININE RATIO 25 (12-20 (CALC)); CHLORIDE 106 mmol/l (95-108); CREATININE 0.5 mg/dL (0.5-1.0); GFR FOR AFR.AMER. > 60 ML/MIN (>=60 (CALC)); GFR OTHER RACES > 60 ML/MIN (>=60 (CALC)); LIPASE 153 u/l (23-300); POTASSIUM 4.1 mmol/l (3.5-5.1); SGOT/AST 29 u/l (9-36); SODIUM 135 mmol/l (137-146); TOTAL PROTEIN 7.2 g/dL (6.3-8.2)
[2022-04-19 14:08] LABS: ANION GAP 14 (6-22 (CALC)); BILIRUBIN, TOTAL 0.7 mg/dL (0.0-1.4); CARBON DIOXIDE 19 mmol/l (22-30)
--- NOTE | 2022-04-19 14:19 | NUR ---
Reassessment of patient completed. No distress noted.
[2022-04-19 14:58] LABS: URINE BILIRUBIN - DIPSTICK NEGATIVE (NEGATIVE); URINE BLOOD DIPSTICK NEGATIVE (NEGATIVE); URINE COLOR YELLOW; URINE GLUCOSE - DIPSTICK NEGATIVE (NEGATIVE); URINE KETONE TRACE mg/dL (NEGATIVE); URINE LEUK ESTERASE NEGATIVE (NEGATIVE); URINE PROTEIN - DIPSTICK NEGATIVE (NEG-TRACE); URINE UROBILINOGEN - DIPSTICK 0.2 E.U./dL (0.2)
[2022-04-19 15:00] LABS: URINE NITRITE - DIPSTICK NEGATIVE (Negative)
--- NOTE | 2022-04-19 15:50 | NUR ---
Reassessment of patient completed. No distress noted.
--- NOTE | 2022-04-19 18:23 | NUR ---
PATIENT ARRIVED AT 1800 FROM ER, REPORT GIVEN BY TORI WILLIAMSON. PATIENT IS ALERT AND ORIENTED. RESP EVEN AND UNLABORED. NO S/S OF DISTRESS NOTED. ORIENTED TO BED, CALL LIGHT, AND ROOM. FALL AND SAFTEY PRECAUTIONS IN PLACE. IV SALINE LOCKED. TELE NSR. PATIENT INFORMED TO CALL WITH ANY QUESTIONS OR CONCERNS. PLAN OF CARE DISCUSSED.
--- NOTE | 2022-04-19 20:00 | NUR ---
PT IN BED PT STATES NO PAIN, NO DISTRESS NOTED, BED IN LOW POSITION, CALL LIGHT IN REACH
--- NOTE | 2022-04-20 | NUR ---
PT IN BED ASLEEP, NO DISTRESS NOTED, CALL LIGHT IN REACH
[2022-04-20 00:10] VITALS: BP 163/69
[2022-04-20 03:56] VITALS: BP 189/88
[2022-04-20 05:22] LABS: HEMATOCRIT 41.4 % (37.0-47.0); HEMOGLOBIN 13.6 g/dl (12.0-16.0); MEAN CELL VOLUME 94.5 fL CALC (80.0-100.0); MEAN CORPUSCULAR HGB 31.1 pG CALC (26.0-32.0); MEAN CORPUSCULAR HGB CONC 32.9 g/dL CAL (32.0-36.0); RED BLOOD COUNT 4.38 mill/uL (4.20-5.60); RED CELL DISTRI WIDTH 12.9 % (11.5-15.5)
[2022-04-20 05:39] LABS: ANION GAP 11 (6-22 (CALC)); BUN 12 mg/dL (8-23); BUN/CREATININE RATIO 18 (12-20 (CALC)); CHLORIDE 107 mmol/l (95-108); CREATININE 0.6 mg/dL (0.5-1.0); GFR FOR AFR.AMER. > 60 ML/MIN (>=60 (CALC)); GFR OTHER RACES > 60 ML/MIN (>=60 (CALC)); MAGNESIUM 2.1 mg/dL (1.6-2.3); POTASSIUM 3.8 mmol/l (3.5-5.1); SODIUM 140 mmol/l (137-146)
[2022-04-20 05:44] LABS: CARBON DIOXIDE 26 mmol/l (22-30)
[2022-04-20 06:59] VITALS: BP 139/50
--- NOTE | 2022-04-20 07:00 | NUR ---
RECIEVED REPORT FROM TERI MAN
--- NOTE | 2022-04-20 07:35 | NUR ---
PT RESTING IN SEMI FOWLERS POSITION. PT A/OX3. ASSESSMENT COMPLETED. RESPIRATIOSN EVEN AND UNLABORED. LUNG SOUNDS CLEAR. HEART RHYTHM NORMAL, SR WITH 1AVB PER ER MONITORING. BOWEL SOUNDS ACTIVE, LBM 04/20/22. #18G EMS INFUSING WITH IVF PER ORDER, SITE PATENT. SKIN INTACT.1+ EDEMA NOTED TO BLE. PT C/O OF 5/10 GENERALIZED PAIN, PT MEDICATED PER ORDER. PT DENIES OF ANY ADDITIONAL NEEDS. ALL SAFTEY PRECAUTIONS ARE IN PLACE WITH CALL LIGHT IN REACH.
[2022-04-20] MEDS ORDERED: ZOFRAN4 MG/TAB PO (11:27)
[2022-04-20] MEDS ORDERED: IMODIUM A-D2 M3 PO (11:28)
[2022-04-20 11:59] VITALS: BP 142/72
--- NOTE | 2022-04-20 12:33 | NUR ---
PT EDUCATED ON DC INSTRUCTIONS AND NEW MEDICAITONS. PT VERBALZIED UNDERSTANDING IV REMOVED WITH CATH INTACT. TELE REMOVED ER INFORMED. TRANSPORTATION CALLED.
--- NOTE | 2022-04-20 12:47 | NUR ---
Discharge instructions given. Patient verbalizes understanding of same. Discharged in stable condition via Wheelchair to Home with staff. All belongings sent with pt.-
== END 2022-04-20 12:57 | disposition home or self-care (01) ==
LOC: ED 13:29 → ED-I 16:25 → ED 16:51 → MS2 16:52
PROVIDERS: Nurse Practitioner; ADMIT Hospitalist; ATTEND Hospitalist
DX: A05.9 Bacterial foodborne intoxication, unspecified (principal); I10 Essential (primary) hypertension; E11.9 Type 2 diabetes mellitus without complications; I48.91 Unspecified atrial fibrillation; E86.0 Dehydration; G47.33 Obstructive sleep apnea (adult) (pediatric); F32.A Depression, unspecified; Z95.5 Presence of coronary angioplasty implant and graft; Z20.822 Contact with and (suspected) exposure to COVID-19
CPT/HCPCS: J1650; Q9967

== ENCOUNTER 2022-04-28 17:03 | Emergency (ER) | payer MEDICARE, BC ==
[~2022-04-28] VITALS: Ht 165.1 cm; Wt 102.7 kg
[~2022-04-28 17:03] MED LIST changes: +IMODIUM A-D2 M3 PO
[2022-04-28 20:33] LABS: HEMOGLOBIN 16.1 g/dl (12.0-16.0); IMMATURE GRANULOCYTES 0.1 % (0.0-5.0); MEAN CELL VOLUME 91.3 fL CALC (80.0-100.0); MEAN CORPUSCULAR HGB 30.6 pG CALC (26.0-32.0); MEAN CORPUSCULAR HGB CONC 33.5 g/dL CAL (32.0-36.0); NEUT# 11.97 thou/uL (2.00-7.15); RED BLOOD COUNT 5.26 mill/uL (4.20-5.60)
[2022-04-28 20:40] LABS: ANION GAP 16 (6-22 (CALC)); BUN 11 mg/dL (8-23); BUN/CREATININE RATIO 19 (12-20 (CALC)); CARBON DIOXIDE 23 mmol/l (22-30); CHLORIDE 100 mmol/l (95-108); CREATININE 0.6 mg/dL (0.5-1.0); GFR FOR AFR.AMER. > 60 ML/MIN (>=60 (CALC)); GFR OTHER RACES > 60 ML/MIN (>=60 (CALC)); POTASSIUM 4.1 mmol/l (3.5-5.1); SODIUM 136 mmol/l (137-146)
[2022-04-28 21:08] VITALS: BP 186/91
[2022-04-28] MEDS ORDERED: VOLTAREN75 MG PO (21:13)
[2022-04-28] MEDS ORDERED: BACTRIM DS1 TAB PO (21:13)
[2022-04-28 21:19] VITALS: BP 184/85
== END 2022-04-28 21:30 | disposition home or self-care (01) ==
LOC: ED 17:03
PROVIDERS: Family Medicine
DX: L03.114 Cellulitis of left upper limb (principal); I10 Essential (primary) hypertension; E11.9 Type 2 diabetes mellitus without complications; I48.91 Unspecified atrial fibrillation; G20 Parkinson's disease; Z95.5 Presence of coronary angioplasty implant and graft; Z95.1 Presence of aortocoronary bypass graft

== ENCOUNTER 2022-12-21 06:16 | Emergency (ER) | payer MEDICARE, BC ==
[~2022-12-21] VITALS: Ht 165.1 cm; Wt 100.0 kg
[2022-12-21] VITALS (12 sets, daily range): BP systolic 131–167; BP diastolic 80–101
[~2022-12-21 06:16] MED LIST changes: +BACTRIM DS1 TAB PO; +VOLTAREN75 MG PO
[2022-12-21 08:04] LABS: BASO% 0.3 % (0-3); EOS% 0.5 % (0-8); HEMATOCRIT 49.3 % (37.0-47.0); HEMOGLOBIN 16.5 g/dl (12.0-16.0); IMMATURE GRANULOCYTES 0.3 % (0.0-5.0); LYMPH% 18.4 % (15-41); MEAN CORPUSCULAR HGB 30.8 pG CALC (26.0-32.0); MEAN CORPUSCULAR HGB CONC 33.5 g/dL CAL (32.0-36.0); MONO% 8.1 % (2-13); NEUT# 11.23 thou/uL (2.00-7.15); NEUT% 72.4 % (42-76); RED BLOOD COUNT 5.36 mill/uL (4.20-5.60); RED CELL DISTRI WIDTH 12.7 % (11.5-15.5)
[2022-12-21 08:42] LABS: ALBUMIN 3.7 g/dL (3.2-5.0); ALKALINE PHOSPHATASE 118 u/l (38-126); ANION GAP 12 (6-22 (CALC)); BILIRUBIN, TOTAL 0.7 mg/dL (0.02-1.3); BUN 8 mg/dL (8-23); BUN/CREATININE RATIO 14 (12-20 (CALC)); CARBON DIOXIDE 24 mmol/l (22-30); CHLORIDE 102 mmol/l (95-108); CREATININE 0.6 mg/dL (0.5-1.0); GFR FOR AFR.AMER. > 60 ML/MIN (>=60 (CALC)); GFR OTHER RACES > 60 ML/MIN (>=60 (CALC)); POTASSIUM 3.6 mmol/l (3.5-5.1); SGOT/AST 23 u/l (9-36); SODIUM 134 mmol/l (137-146); TOTAL PROTEIN 7.3 g/dL (6.3-8.2)
[2022-12-21] MEDS ORDERED: CLINDAMYCIN HY300 MG PO (09:04)
== END 2022-12-21 11:51 | disposition home or self-care (01) ==
LOC: ED 06:16
PROVIDERS: Emergency Medicine
DX: L03.114 Cellulitis of left upper limb (principal); I10 Essential (primary) hypertension; E11.9 Type 2 diabetes mellitus without complications; I48.91 Unspecified atrial fibrillation; G20 Parkinson's disease; G25.0 Essential tremor; Z95.5 Presence of coronary angioplasty implant and graft

== ENCOUNTER 2023-05-14 09:30 | Observation (INO) | payer MEDICARE, BC ==
[~2023-05-14] VITALS: Ht 165.1 cm; Wt 96.0 kg
[2023-05-14] VITALS (22 sets, daily range): BP systolic 101–135; BP diastolic 51–103
[~2023-05-14 09:30] MED LIST changes: +ALDACTONE25 MG PO; +ASPIRINCHW 81MG PO; +CARB/LEVO1 TA3 PO; +CELEXA10 MG PO; +CLINDAMYCIN HY300 MG PO; +CRESTOR5 MG PO; -NITROGLYCERIN0.3 MG; +NITROGLYCERIN0.4 MG SL; +TOPROL XL25 MG PO; -TRAMADOL HYDROC50 M1; +WELLBUTRIN XL300 MG PO
[2023-05-14 10:09] LABS: BASO% 0.1 % (0-3); EOS% 0.4 % (0-8); HEMATOCRIT 51.8 % (37.0-47.0); HEMOGLOBIN 16.8 g/dl (12.0-16.0); IMMATURE GRANULOCYTES 0.4 % (0.0-5.0); LYMPH% 26.5 % (15-41); MEAN CELL VOLUME 92.5 fL CALC (80.0-100.0); MEAN CORPUSCULAR HGB CONC 32.4 g/dL CAL (32.0-36.0); MONO% 8.5 % (2-13); NEUT# 8.72 thou/uL (2.00-7.15); NEUT% 64.1 % (42-76); RED BLOOD COUNT 5.6 mill/uL (4.20-5.60); RED CELL DISTRI WIDTH 13.2 % (11.5-15.5)
[2023-05-14 10:20] LABS: ALBUMIN 3.5 g/dL (3.2-5.0); ALKALINE PHOSPHATASE 126 u/l (38-126); ANION GAP 16 (6-22 (CALC)); BUN 11 mg/dL (8-23); BUN/CREATININE RATIO 13 (12-20 (CALC)); CARBON DIOXIDE 22 mmol/l (22-30); CHLORIDE 101 mmol/l (95-108); CPK 99 u/l (30-135); CREATININE 0.8 mg/dL (0.5-1.0); GFR FOR AFR.AMER. > 60 ML/MIN (>=60 (CALC)); GFR OTHER RACES > 60 ML/MIN (>=60 (CALC)); POTASSIUM 3.5 mmol/l (3.5-5.1); SGOT/AST 26 u/l (9-36); SODIUM 136 mmol/l (137-146); TOTAL PROTEIN 6.5 g/dL (6.3-8.2)
[2023-05-14 11:38] LABS: URINE COLOR DK. YELLOW; URINE GLUCOSE - DIPSTICK NEGATIVE (NEGATIVE); URINE KETONE 15 mg/dL (NEGATIVE)
[2023-05-14 11:39] LABS: URINE BLOOD DIPSTICK MODERATE (NEGATIVE); URINE LEUK ESTERASE LARGE (NEGATIVE); URINE NITRITE - DIPSTICK POSITIVE (Negative); URINE PROTEIN - DIPSTICK 100 mg/dL (NEG-TRACE)
[2023-05-14 11:43] LABS: URINE BACTERIA MANY hpf; URINE WBC >100 WBC/hpf (0-5)
[2023-05-14 11:45] LABS: URINE HYALINE CAST FEW lpf (NONE-RARE)
[2023-05-14] MEDS ORDERED: SINEMET 25/1001 TA2 PO (19:55)
[2023-05-14] MEDS ORDERED: ULTRAM50 MG PO (19:56)
[2023-05-15 01:55] VITALS: BP 108/62
[2023-05-15 05:43] LABS: BASO% 0.2 % (0-3); EOS% 0.9 % (0-8); HEMOGLOBIN 14.9 g/dl (12.0-16.0); IMMATURE GRANULOCYTES 0.3 % (0.0-5.0); MEAN CELL VOLUME 93.6 fL CALC (80.0-100.0); MEAN CORPUSCULAR HGB 30.8 pG CALC (26.0-32.0); MONO% 9.4 % (2-13); NEUT# 5.86 thou/uL (2.00-7.15); NEUT% 55.2 % (42-76); RED BLOOD COUNT 4.83 mill/uL (4.20-5.60); RED CELL DISTRI WIDTH 13.4 % (11.5-15.5)
[2023-05-15 05:44] LABS: HEMATOCRIT 45.2 % (37.0-47.0)
[2023-05-15 06:10] LABS: ALKALINE PHOSPHATASE 107 u/l (38-126); ANION GAP 14 (6-22 (CALC)); BUN 7 mg/dL (8-23); BUN/CREATININE RATIO 10 (12-20 (CALC)); CARBON DIOXIDE 22 mmol/l (22-30); CHLORIDE 105 mmol/l (95-108); CREATININE 0.7 mg/dL (0.5-1.0); GFR FOR AFR.AMER. > 60 ML/MIN (>=60 (CALC)); GFR OTHER RACES > 60 ML/MIN (>=60 (CALC)); MAGNESIUM 1.7 mg/dL (1.6-2.3); POTASSIUM 2.8 mmol/l (3.5-5.1); SGOT/AST 20 u/l (9-36); SODIUM 137 mmol/l (137-146)
[2023-05-15 06:23] LABS: BILIRUBIN, TOTAL 0.5 mg/dL (0.02-1.3)
[2023-05-15 07:16] VITALS: BP 113/68
[2023-05-15 11:33] VITALS: BP 115/52
[2023-05-15 15:44] VITALS: BP 125/70
[2023-05-15 19:32] VITALS: BP 122/89
[2023-05-16 00:18] VITALS: BP 144/96
[2023-05-16 04:43] VITALS: BP 147/86
[2023-05-16 05:52] LABS: BASO% 0.3 % (0-3); EOS% 1.9 % (0-8); HEMATOCRIT 47.6 % (37.0-47.0); HEMOGLOBIN 15.5 g/dl (12.0-16.0); IMMATURE GRANULOCYTES 0.2 % (0.0-5.0); LYMPH% 29.1 % (15-41); MEAN CELL VOLUME 94.1 fL CALC (80.0-100.0); MEAN CORPUSCULAR HGB 30.6 pG CALC (26.0-32.0); MEAN CORPUSCULAR HGB CONC 32.6 g/dL CAL (32.0-36.0); MONO% 8.6 % (2-13); NEUT# 6.77 thou/uL (2.00-7.15); NEUT% 59.9 % (42-76); RED BLOOD COUNT 5.06 mill/uL (4.20-5.60); RED CELL DISTRI WIDTH 13.1 % (11.5-15.5)
[2023-05-16 05:59] LABS: ALBUMIN 3.2 g/dL (3.2-5.0); ALKALINE PHOSPHATASE 95 u/l (38-126); BUN 4 mg/dL (8-23); BUN/CREATININE RATIO 7 (12-20 (CALC)); CARBON DIOXIDE 22 mmol/l (22-30); CHLORIDE 105 mmol/l (95-108); CREATININE 0.5 mg/dL (0.5-1.0); GFR FOR AFR.AMER. > 60 ML/MIN (>=60 (CALC)); GFR OTHER RACES > 60 ML/MIN (>=60 (CALC)); SGOT/AST 27 u/l (9-36); SODIUM 138 mmol/l (137-146); TOTAL PROTEIN 6.1 g/dL (6.3-8.2)
[2023-05-16 06:00] LABS: ANION GAP 15 (6-22 (CALC)); BILIRUBIN, TOTAL 0.8 mg/dL (0.02-1.3); POTASSIUM 3.6 mmol/l (3.5-5.1)
[2023-05-16 06:20] VITALS: BP 138/78
[2023-05-16 11:25] VITALS: BP 136/88
[2023-05-16] MEDS ORDERED: KEFLEX500 MG PO (12:43)
[2023-05-16 18:41] VITALS: BP 137/79
[2023-05-16 19:00] VITALS: BP 137/79
== END 2023-05-16 23:00 ==
LOC: ED 09:30 → ED-I 12:00 → ED 12:32 → MS2 12:33
PROVIDERS: Family Medicine; Nurse Practitioner Family; ADMIT Student in an Organized Health Care Education/Training Program; ATTEND Student in an Organized Health Care Education/Training Program
DX: N39.0 Urinary tract infection, site not specified (principal); R07.9 Chest pain, unspecified; I10 Essential (primary) hypertension; E11.9 Type 2 diabetes mellitus without complications; I48.91 Unspecified atrial fibrillation; I25.10 Atherosclerotic heart disease of native coronary artery without angina pectoris; G47.33 Obstructive sleep apnea (adult) (pediatric); R25.1 Tremor, unspecified; F32.A Depression, unspecified; Z95.1 Presence of aortocoronary bypass graft; Z95.5 Presence of coronary angioplasty implant and graft; Z91.81 History of falling

== ENCOUNTER 2023-11-19 10:53 | Observation (INO) | payer MEDICARE ==
[~2023-11-19] VITALS: Ht 165.1 cm; Wt 80.6 kg
[2023-11-19] VITALS (22 sets, daily range): BP systolic 110–155; BP diastolic 60–117
[~2023-11-19 10:53] MED LIST changes: +KEFLEX500 MG PO; +SINEMET 25/1001 TA2 PO; +ULTRAM50 MG PO
[2023-11-19 13:27] LABS: BASO% 0.4 % (0-3); EOS% 1.9 % (0-8); HEMATOCRIT 40.3 % (37.0-47.0); HEMOGLOBIN 13.4 g/dl (12.0-16.0); IMMATURE GRANULOCYTES 0.2 % (0.0-5.0); MEAN CELL VOLUME 95.5 fL CALC (80.0-100.0); MEAN CORPUSCULAR HGB 31.8 pG CALC (26.0-32.0); MEAN CORPUSCULAR HGB CONC 33.3 g/dL CAL (32.0-36.0); MONO% 9.7 % (2-13); NEUT# 3.16 thou/uL (2.00-7.15); NEUT% 55.8 % (42-76); RED BLOOD COUNT 4.22 mill/uL (4.20-5.60); RED CELL DISTRI WIDTH 17.4 % (11.5-15.5)
[2023-11-19 13:33] LABS: ALBUMIN 3.5 g/dL (3.2-5.0); ALKALINE PHOSPHATASE 109 u/l (38-126); ANION GAP 12 (6-22 (CALC)); BILIRUBIN, TOTAL 1.5 mg/dL (0.02-1.3); BUN 12 mg/dL (8-23); BUN/CREATININE RATIO 27 (12-20 (CALC)); CARBON DIOXIDE 26 mmol/l (22-30); CHLORIDE 102 mmol/l (95-108); CREATININE 0.4 mg/dL (0.5-1.0); GFR FOR AFR.AMER. > 60 ML/MIN (>=60 (CALC)); GFR OTHER RACES > 60 ML/MIN (>=60 (CALC)); SGOT/AST 32 u/l (9-36); SODIUM 137 mmol/l (137-146); TOTAL PROTEIN 6.3 g/dL (6.3-8.2)
[2023-11-19] MEDS ORDERED: POTASSIUM CHLORIDE 20 MEQ/TAB PO ONE (13:45)
[2023-11-19 14:44] LABS: URINE BLOOD DIPSTICK Negative (NEGATIVE); URINE GLUCOSE - DIPSTICK Negative (NEGATIVE); URINE KETONE 40 mg/dL (NEGATIVE); URINE LEUK ESTERASE Trace (NEGATIVE); URINE PH 5.5 (4.5-8.0); URINE PROTEIN - DIPSTICK 30 mg/dL (NEG-TRACE); URINE SPECIFIC GRAVITY >=1.030
[2023-11-19 14:45] LABS: URINE COLOR Dark yellow; URINE NITRITE - DIPSTICK Positive (Negative)
[2023-11-19 15:00] LABS: URINE BACTERIA MANY hpf; URINE SQUAMOUS EPITHELIAL CELL FEW EPI/hpf (0-FEW)
[2023-11-19] MEDS ORDERED: ONDANSETRON HCl 4 MG/2 ML SDV IV ONE (15:00)
[2023-11-19] MEDS ORDERED: ACETAMINOPHEN 325 MG/TAB PO PRN (15:40)
[2023-11-19] MEDS ORDERED: MAGNESIUM HYDROXIDE 30 ML UDC PO PRN (15:40)
[2023-11-19] MEDS ORDERED: SODIUM CHLORIDE 0.9% 1,000 ML IV PRN (15:40)
[2023-11-19] MEDS ORDERED: NITROGLYCERIN 0.4 MG/TAB SL PRN (15:50)
[2023-11-19] MEDS ORDERED: CARBIDOPA/LEVODOPA 25/100 MG IR 1 COMBO/TAB PO SCH (16:30)
[2023-11-19] MEDS ORDERED: METOPROLOL SUCCINATE 25 MG/TAB-TOPROL XL PO SCH (16:30)
[2023-11-19] MEDS ORDERED: ALPRAZolam 0.5 MG/TAB PO ONE (16:40)
[2023-11-19] MEDS ORDERED: ENOXAPARIN SODIUM 40 MG/0.4 ML SYR SC SCH (21:00)
[2023-11-19] MEDS ORDERED: METOPROLOL TARTRATE 25 MG/TAB PO SCH (21:00)
[2023-11-20] VITALS (24 sets, daily range): BP systolic 63–141; BP diastolic 41–90
[2023-11-20 06:13] LABS: BASO% 0.3 % (0-3); EOS% 3.7 % (0-8); HEMATOCRIT 35.8 % (37.0-47.0); HEMOGLOBIN 11.9 g/dl (12.0-16.0); IMMATURE GRANULOCYTES 0.2 % (0.0-5.0); LYMPH% 47.5 % (15-41); MEAN CELL VOLUME 96.2 fL CALC (80.0-100.0); MEAN CORPUSCULAR HGB CONC 33.2 g/dL CAL (32.0-36.0); MONO% 11.5 % (2-13); NEUT# 2.2 thou/uL (2.00-7.15); NEUT% 36.8 % (42-76); RED BLOOD COUNT 3.72 mill/uL (4.20-5.60); RED CELL DISTRI WIDTH 17.4 % (11.5-15.5)
[2023-11-20] MEDS ORDERED: ALPRAZolam 0.5 MG/TAB PO PRN (06:20)
[2023-11-20 06:32] LABS: ALKALINE PHOSPHATASE 81 u/l (38-126); ANION GAP 8 (6-22 (CALC)); BUN 10 mg/dL (8-23); BUN/CREATININE RATIO 21 (12-20 (CALC)); CALCULATED LDLCHOLESTEROL 17 mg/dL (62-129 (CALC)); CARBON DIOXIDE 27 mmol/l (22-30); CHLORIDE 106 mmol/l (95-108); CHOLESTEROL HDL RATIO 1.8 (<4.4 (CALC)); CREATININE 0.5 mg/dL (0.5-1.0); GFR FOR AFR.AMER. > 60 ML/MIN (>=60 (CALC)); GFR OTHER RACES > 60 ML/MIN (>=60 (CALC)); HDL CHOLESTEROL 45 mg/dL (39.0-59.0); MAGNESIUM 1.6 mg/dL (1.6-2.3); POTASSIUM 3.2 mmol/l (3.5-5.1); SGOT/AST 19 u/l (9-36); SODIUM 137 mmol/l (137-146); TOTAL CHOLESTEROL 79 mg/dl (0-199); TOTAL TRIGLYCERIDES 86 mg/dl (0-149); VLDL CHOLESTROL 17 mg/dl (0-48 (CALC))
[2023-11-20 06:38] LABS: ALBUMIN 2.5 g/dL (3.2-5.0); BILIRUBIN, TOTAL 0.7 mg/dL (0.02-1.3); TOTAL PROTEIN 4.8 g/dL (6.3-8.2)
[2023-11-20] MEDS ORDERED: DEXTROSE 250 ML IV SCH (06:50)
[2023-11-20] MEDS ORDERED: ASPIRIN 81 MG/TAB PO SCH (09:00)
[2023-11-20] MEDS ORDERED: DILTIAZEM PO SCH (09:00)
[2023-11-20] MEDS ORDERED: LISINOPRIL 20 MG/TAB PO SCH (09:00)
[2023-11-20] MEDS ORDERED: buPROPion HCL 150 MG TAB SR PO SCH (09:00)
[2023-11-21] VITALS (14 sets, daily range): BP systolic 84–142; BP diastolic 63–97
[2023-11-21 05:37] LABS: BASO% 0.3 % (0-3); EOS% 4.6 % (0-8); HEMATOCRIT 38.1 % (37.0-47.0); HEMOGLOBIN 12.4 g/dl (12.0-16.0); LYMPH% 46.6 % (15-41); MEAN CELL VOLUME 97.7 fL CALC (80.0-100.0); MEAN CORPUSCULAR HGB 31.8 pG CALC (26.0-32.0); MEAN CORPUSCULAR HGB CONC 32.5 g/dL CAL (32.0-36.0); MONO% 9.5 % (2-13); NEUT# 2.29 thou/uL (2.00-7.15); RED BLOOD COUNT 3.9 mill/uL (4.20-5.60); RED CELL DISTRI WIDTH 18.2 % (11.5-15.5)
[2023-11-21 05:50] LABS: ALBUMIN 2.5 g/dL (3.2-5.0); ALKALINE PHOSPHATASE 82 u/l (38-126); BILIRUBIN, TOTAL 0.5 mg/dL (0.02-1.3); BUN 7 mg/dL (8-23); BUN/CREATININE RATIO 15 (12-20 (CALC)); CARBON DIOXIDE 27 mmol/l (22-30); CHLORIDE 111 mmol/l (95-108); CREATININE 0.5 mg/dL (0.5-1.0); GFR FOR AFR.AMER. > 60 ML/MIN (>=60 (CALC)); GFR OTHER RACES > 60 ML/MIN (>=60 (CALC)); MAGNESIUM 1.6 mg/dL (1.6-2.3); SGOT/AST 21 u/l (9-36); SODIUM 140 mmol/l (137-146); TOTAL PROTEIN 4.9 g/dL (6.3-8.2)
[2023-11-21 05:52] LABS: ANION GAP 5 (6-22 (CALC)); POTASSIUM 3.3 mmol/l (3.5-5.1)
[2023-11-21] MEDS ORDERED: OMNICEF300 MG PO (13:52)
[2023-11-21] MEDS ORDERED: XANAX0.5 MG PO (14:37)
== END 2023-11-21 16:00 ==
LOC: ED 10:53 → ED-I 14:40 → ED 15:42 → ICU 15:43
PROVIDERS: Nurse Practitioner; ADMIT Student in an Organized Health Care Education/Training Program; ATTEND Student in an Organized Health Care Education/Training Program
DX: N39.0 Urinary tract infection, site not specified (principal); B96.20 Unspecified Escherichia coli [E. coli] as the cause of diseases classified elsewhere; E87.6 Hypokalemia; I10 Essential (primary) hypertension; I25.10 Atherosclerotic heart disease of native coronary artery without angina pectoris; I48.91 Unspecified atrial fibrillation; G20.A1 Parkinson's disease without dyskinesia, without mention of fluctuations; F41.9 Anxiety disorder, unspecified; F32.A Depression, unspecified; G47.33 Obstructive sleep apnea (adult) (pediatric); F40.240 Claustrophobia; Z95.1 Presence of aortocoronary bypass graft; Z95.5 Presence of coronary angioplasty implant and graft; Z20.822 Contact with and (suspected) exposure to COVID-19
CPT/HCPCS: J1650

== ENCOUNTER 2024-03-30 13:53 | Observation (INO) | payer MEDICARE ==
[~2024-03-30] VITALS: Ht 165.1 cm; Wt 72.1 kg
[2024-03-30] VITALS (33 sets, daily range): BP systolic 137–198; BP diastolic 73–115
[~2024-03-30 13:53] MED LIST changes: +CARB PO; +CIPROFLOXACN250 M1 PO; +HYDROXYZ HCL25 MG PO; +LEVO PO; +OMNICEF300 MG PO; +VANCOMYCIN HCL125 M1 PO; +XANAX0.5 MG PO; +ZITHROMAX250 MG PO
[2024-03-30 14:23] LABS: BASO% 0.1 % (0-3); EOS% 0.1 % (0-8); HEMATOCRIT 43.8 % (37.0-47.0); HEMOGLOBIN 14.4 g/dl (12.0-16.0); IMMATURE GRANULOCYTES 0.3 % (0.0-5.0); LYMPH% 20.7 % (15-41); MEAN CELL VOLUME 94.6 fL CALC (80.0-100.0); MEAN CORPUSCULAR HGB 31.1 pG CALC (26.0-32.0); MEAN CORPUSCULAR HGB CONC 32.9 g/dL CAL (32.0-36.0); MONO% 11.2 % (2-13); NEUT# 7.94 thou/uL (2.00-7.15); NEUT% 67.6 % (42-76); RED BLOOD COUNT 4.63 mill/uL (4.20-5.60); RED CELL DISTRI WIDTH 14.3 % (11.5-15.5)
[2024-03-30] MEDS ORDERED: LABETALOL HCL 20 MG/ 4 ML CARTRG IV ONE (14:30)
[2024-03-30 15:12] LABS: ALKALINE PHOSPHATASE 97 u/l (38-126); BILIRUBIN, TOTAL 1.2 mg/dL (0.02-1.3); BUN 10 mg/dL (8-23); BUN/CREATININE RATIO 19 (12-20 (CALC)); CARBON DIOXIDE 22 mmol/l (22-30); CHLORIDE 107 mmol/l (95-108); CREATININE 0.5 mg/dL (0.5-1.0); ESTIMATED GFR 97 ML/MIN (>=90 (CALC)); LIPASE 82 u/l (23-300); MAGNESIUM 1.4 mg/dL (1.6-2.3); SGOT/AST 42 u/l (9-36); TOTAL PROTEIN 5.8 g/dL (6.3-8.2)
[2024-03-30 15:27] LABS: ANION GAP 9 (6-22 (CALC)); POTASSIUM 3.2 mmol/l (3.5-5.1); SODIUM 135 mmol/l (137-146)
[2024-03-30] MEDS ORDERED: hydrALAZINE HCL 20 MG/ML VIAL(1 ML) IV ONE (15:50)
[2024-03-30] MEDS ORDERED: FUROSEMIDE 40 MG/4 ML SDV IV ONE (16:25)
[2024-03-30] MEDS ORDERED: MAGNESIUM SULFATE HEPTAHYDRATE 50 ML IV ONE (16:25)
[2024-03-30] MEDS ORDERED: cefTRIAXone SODIUM 2 GM in SODIUM CHLORIDE 0.9% 100 ML IV ONE (17:25)
[2024-03-30] MEDS ORDERED: DOXYCYCLINE HYCLATE 100 MG in SODIUM CHLORIDE 0.9% 100 ML IV ONE (17:25)
[2024-03-30 17:51] LABS: URINE BILIRUBIN - DIPSTICK Negative (NEGATIVE); URINE BLOOD DIPSTICK Trace-intact (NEGATIVE); URINE GLUCOSE - DIPSTICK Negative (NEGATIVE); URINE KETONE Negative (NEGATIVE); URINE LEUK ESTERASE Negative (NEGATIVE); URINE NITRITE - DIPSTICK Negative (Negative); URINE PROTEIN - DIPSTICK Negative (NEG-TRACE); URINE SPECIFIC GRAVITY 1.015; URINE UROBILINOGEN - DIPSTICK 0.2 E.U./dL (0.2)
[2024-03-30 17:52] LABS: URINE COLOR Yellow
[2024-03-30] MEDS ORDERED: VANCOMYCIN HCL 125 MG/CAP PO ONE (18:15)
[2024-03-30] MEDS ORDERED: ACETAMINOPHEN 325 MG/TAB PO PRN (19:20)
[2024-03-30] MEDS ORDERED: MAGNESIUM HYDROXIDE 30 ML UDC PO PRN (19:20)
[2024-03-30] MEDS ORDERED: traMADol HCL 50 MG/TAB PO PRN (19:25)
[2024-03-30] MEDS ORDERED: CARBIDOPA/LEVODOPA 25/100 MG IR 1 COMBO/TAB PO SCH (21:00)
[2024-03-30] MEDS ORDERED: AZITHROMYCIN 500 MG in SODIUM CHLORIDE 0.9% 250 ML IV SCH (21:00)
[2024-03-30] MEDS ORDERED: ENOXAPARIN SODIUM 40 MG/0.4 ML SYR SC SCH (21:00)
[2024-03-30] MEDS ORDERED: VANCOMYCIN HCL 125 MG/CAP PO SCH (21:00)
[2024-03-30] MEDS ORDERED: hydrALAZINE HCL 20 MG/ML VIAL(1 ML) IV PRN (21:45)
[2024-03-30] MEDS ORDERED: LISINOPRIL 20 MG/TAB PO SCH (22:36)
[2024-03-31] VITALS (9 sets, daily range): BP systolic 83–165; BP diastolic 49–92
[2024-03-31] MEDS ORDERED: buPROPion HCL 150 MG TAB SR PO SCH (09:00)
[2024-03-31] MEDS ORDERED: ASPIRIN 81 MG/TAB PO SCH (09:00)
[2024-03-31] MEDS ORDERED: FUROSEMIDE 40 MG/4 ML SDV IV SCH (09:00)
[2024-03-31] MEDS ORDERED: METOPROLOL SUCCINATE 25 MG/TAB-TOPROL XL PO SCH (09:00)
[2024-03-31 09:20] LABS: HEMATOCRIT 46.3 % (37.0-47.0); HEMOGLOBIN 15.3 g/dl (12.0-16.0); MEAN CELL VOLUME 95.1 fL CALC (80.0-100.0); MEAN CORPUSCULAR HGB 31.4 pG CALC (26.0-32.0); RED BLOOD COUNT 4.87 mill/uL (4.20-5.60); RED CELL DISTRI WIDTH 14.2 % (11.5-15.5)
[2024-03-31 10:04] LABS: ALBUMIN 3.1 g/dL (3.2-5.0); BILIRUBIN, TOTAL 1.3 mg/dL (0.02-1.3); CREATININE 0.4 mg/dL (0.5-1.0); MAGNESIUM 1.6 mg/dL (1.6-2.3)
[2024-03-31 11:03] LABS: POTASSIUM 2.8 mmol/l (3.5-5.1)
[2024-03-31] MEDS ORDERED: LACTULOSE 20 GM/30 ML UDC PO PRN (12:10)
[2024-03-31] MEDS ORDERED: POTASSIUM CHLORIDE 20 MEQ/TAB PO SCH (13:00)
[2024-04-01] VITALS (8 sets, daily range): BP systolic 113–150; BP diastolic 74–90
[2024-04-01 05:23] LABS: BASO% 0.2 % (0-3); EOS% 2.3 % (0-8); HEMATOCRIT 43.2 % (37.0-47.0); HEMOGLOBIN 13.9 g/dl (12.0-16.0); IMMATURE GRANULOCYTES 0.8 % (0.0-5.0); LYMPH% 30.9 % (15-41); MEAN CELL VOLUME 95.8 fL CALC (80.0-100.0); MEAN CORPUSCULAR HGB 30.8 pG CALC (26.0-32.0); MEAN CORPUSCULAR HGB CONC 32.2 g/dL CAL (32.0-36.0); MONO% 10.6 % (2-13); NEUT# 4.91 thou/uL (2.00-7.15); NEUT% 55.2 % (42-76); RED BLOOD COUNT 4.51 mill/uL (4.20-5.60); RED CELL DISTRI WIDTH 14.4 % (11.5-15.5)
[2024-04-01 05:47] LABS: ALBUMIN 2.6 g/dL (3.2-5.0); BILIRUBIN, TOTAL 0.8 mg/dL (0.02-1.3); CREATININE 0.5 mg/dL (0.5-1.0); MAGNESIUM 1.4 mg/dL (1.6-2.3); POTASSIUM 2.9 mmol/l (3.5-5.1); TOTAL PROTEIN 5.3 g/dL (6.3-8.2)
[2024-04-01] MEDS ORDERED: MAGNESIUM SULFATE HEPTAHYDRATE 50 ML IV SCH (09:00)
[2024-04-01] MEDS ORDERED: POTASSIUM CHLORIDE 20 MEQ/TAB PO SCH (09:00)
[2024-04-02] VITALS (7 sets, daily range): BP systolic 127–152; BP diastolic 83–99
[2024-04-02 05:35] LABS: BASO% 0.4 % (0-3); EOS% 2.5 % (0-8); HEMATOCRIT 41.3 % (37.0-47.0); HEMOGLOBIN 13.7 g/dl (12.0-16.0); IMMATURE GRANULOCYTES 0.1 % (0.0-5.0); LYMPH% 42.8 % (15-41); MEAN CELL VOLUME 96.3 fL CALC (80.0-100.0); MEAN CORPUSCULAR HGB 31.9 pG CALC (26.0-32.0); MEAN CORPUSCULAR HGB CONC 33.2 g/dL CAL (32.0-36.0); MONO% 10.6 % (2-13); NEUT# 3.72 thou/uL (2.00-7.15); NEUT% 43.6 % (42-76); RED BLOOD COUNT 4.29 mill/uL (4.20-5.60); RED CELL DISTRI WIDTH 14.6 % (11.5-15.5)
[2024-04-02 06:03] LABS: ALBUMIN 2.9 g/dL (3.2-5.0); BILIRUBIN, TOTAL 0.8 mg/dL (0.02-1.3); CREATININE 0.5 mg/dL (0.5-1.0); MAGNESIUM 1.7 mg/dL (1.6-2.3); POTASSIUM 3.2 mmol/l (3.5-5.1); TOTAL PROTEIN 5.8 g/dL (6.3-8.2)
[2024-04-02] MEDS ORDERED: POTASSIUM CHLORIDE 20 MEQ/TAB PO SCH (07:00)
[2024-04-02] MEDS ORDERED: DOXYCYCLINE HY100 MG PO (14:38)
[2024-04-02] MEDS ORDERED: VANCOMYCIN HCL125 M1 PO (14:38)
[2024-04-02] MEDS ORDERED: TRAMADOL HCL50 MG PO (14:40)
[2024-04-02] MEDS ORDERED: DOXYCYCLINE HYCLATE 100 MG/CAP PO SCH (21:00)
== END 2024-04-02 17:10 ==
LOC: ED 13:53 → ED-I 14:28 → ED 14:28 → ED-I 17:40 → ED 18:21 → MS2 18:22
PROVIDERS: Family Medicine; Nurse Practitioner Family; ADMIT Internal Medicine; ATTEND Internal Medicine
DX: I11.0 Hypertensive heart disease with heart failure (principal); I50.9 Heart failure, unspecified; J18.9 Pneumonia, unspecified organism; E87.6 Hypokalemia; E83.42 Hypomagnesemia; A04.72 Enterocolitis due to Clostridium difficile, not specified as recurrent; E11.9 Type 2 diabetes mellitus without complications; I25.10 Atherosclerotic heart disease of native coronary artery without angina pectoris; I48.91 Unspecified atrial fibrillation; G47.33 Obstructive sleep apnea (adult) (pediatric); G20.A1 Parkinson's disease without dyskinesia, without mention of fluctuations; F41.9 Anxiety disorder, unspecified; F32.A Depression, unspecified; Z95.0 Presence of cardiac pacemaker; Z95.1 Presence of aortocoronary bypass graft; Z95.5 Presence of coronary angioplasty implant and graft; Z91.81 History of falling; Z20.822 Contact with and (suspected) exposure to COVID-19
CPT/HCPCS: J1650; J3475; Q9967

== ENCOUNTER 2024-05-09 07:06 | Emergency (ER) | payer MEDICARE ==
[2024-05-09] VITALS (15 sets, daily range): BP systolic 130–150; BP diastolic 85–98
[~2024-05-09] VITALS: Ht 165.1 cm; Wt 72.6 kg
[~2024-05-09 07:06] MED LIST changes: +DOXYCYCLINE HY100 MG PO
[2024-05-09 10:24] LABS: BASO% 0.1 % (0-3); EOS% 0.8 % (0-8); HEMATOCRIT 44.2 % (37.0-47.0); HEMOGLOBIN 14.1 g/dl (12.0-16.0); IMMATURE GRANULOCYTES 0.1 % (0.0-5.0); LYMPH% 23.7 % (15-41); MEAN CELL VOLUME 95.1 fL CALC (80.0-100.0); MEAN CORPUSCULAR HGB 30.3 pG CALC (26.0-32.0); MEAN CORPUSCULAR HGB CONC 31.9 g/dL CAL (32.0-36.0); MONO% 8.4 % (2-13); NEUT# 5.55 thou/uL (2.00-7.15); NEUT% 66.9 % (42-76); RED BLOOD COUNT 4.65 mill/uL (4.20-5.60); RED CELL DISTRI WIDTH 14.3 % (11.5-15.5)
== END 2024-05-09 10:37 | disposition short-term general hospital (02) ==
LOC: ED 07:06
PROVIDERS: Family Medicine
DX: S12.112A Nondisplaced Type II dens fracture, initial encounter for closed fracture (principal); S00.03XA Contusion of scalp, initial encounter; S51.812A Laceration without foreign body of left forearm, initial encounter; S51.811A Laceration without foreign body of right forearm, initial encounter; I11.0 Hypertensive heart disease with heart failure; I50.9 Heart failure, unspecified; E11.9 Type 2 diabetes mellitus without complications; G20.A1 Parkinson's disease without dyskinesia, without mention of fluctuations; G47.33 Obstructive sleep apnea (adult) (pediatric); F41.9 Anxiety disorder, unspecified; F32.A Depression, unspecified; W06.XXXA Fall from bed, initial encounter; Y92.003 Bedroom of unspecified non-institutional (private) residence as the place of occurrence of the external cause; Z95.1 Presence of aortocoronary bypass graft; Z95.5 Presence of coronary angioplasty implant and graft

== ENCOUNTER 2024-07-13 17:50 | Emergency (ER) | payer MEDICARE ==
[2024-07-13] VITALS (9 sets, daily range): BP systolic 115–141; BP diastolic 74–91
[~2024-07-13] VITALS: Ht 165.1 cm; Wt 68.0 kg
[2024-07-13] MEDS ORDERED: SODIUM CHLORIDE 0.9% 1,000 ML IV ONE ×2 (18:00→20:40)
[2024-07-13 18:58] LABS: BASO% 0.1 % (0-3); HEMATOCRIT 40.2 % (37.0-47.0); HEMOGLOBIN 12.4 g/dl (12.0-16.0); IMMATURE GRANULOCYTES 1.1 % (0.0-5.0); LYMPH% 7.2 % (15-41); MEAN CELL VOLUME 93.5 fL CALC (80.0-100.0); MEAN CORPUSCULAR HGB 28.8 pG CALC (26.0-32.0); MEAN CORPUSCULAR HGB CONC 30.8 g/dL CAL (32.0-36.0); MONO% 8.7 % (2-13); NEUT# 6.78 thou/uL (2.00-7.15); NEUT% 82.9 % (42-76); RED BLOOD COUNT 4.3 mill/uL (4.20-5.60)
[2024-07-13] MEDS ORDERED: predniSONE 20 MG/TAB PO ONE (19:00)
[2024-07-13 19:10] LABS: ALKALINE PHOSPHATASE 115 u/l (38-126); BILIRUBIN, TOTAL 1.1 mg/dL (0.02-1.3); BUN 26 mg/dL (8-23); BUN/CREATININE RATIO 29 (12-20 (CALC)); CHLORIDE 108 mmol/l (95-108); CREATININE 0.9 mg/dL (0.5-1.0); ESTIMATED GFR 66 ML/MIN (>=90 (CALC)); SGOT/AST 24 u/l (9-36); SODIUM 135 mmol/l (137-146); TOTAL PROTEIN 6.5 g/dL (6.3-8.2)
[2024-07-13 19:13] LABS: ALBUMIN 3.6 g/dL (3.2-5.0); ANION GAP 10 (6-22 (CALC)); CARBON DIOXIDE 22 mmol/l (22-30); POTASSIUM 5.2 mmol/l (3.5-5.1)
[2024-07-13] MEDS ORDERED: BAYER ASPIRIN E81 MG PO (20:51)
[2024-07-13] MEDS ORDERED: RYTARY 36.25-141 CAP PO ×2 (20:54→20:56)
[2024-07-13] MEDS ORDERED: CRESTOR5 MG PO (20:56)
[2024-07-13] MEDS ORDERED: DILT-XR120 MG PO (20:57)
[2024-07-13 22:09] LABS: URINE BILIRUBIN - DIPSTICK Negative (NEGATIVE); URINE BLOOD DIPSTICK Moderate (NEGATIVE); URINE COLOR Yellow; URINE GLUCOSE - DIPSTICK Negative (NEGATIVE); URINE KETONE 15 mg/dL (NEGATIVE); URINE LEUK ESTERASE Large (NEGATIVE); URINE NITRITE - DIPSTICK Positive (Negative); URINE PROTEIN - DIPSTICK 30 mg/dL (NEG-TRACE); URINE SPECIFIC GRAVITY 1.015
[2024-07-13 22:17] LABS: URINE WBC 50-100 WBC/hpf (0-5)
[2024-07-13 22:20] LABS: URINE SQUAMOUS EPITHELIAL CELL FEW EPI/hpf (0-FEW)
[2024-07-13 22:21] LABS: URINE BACTERIA MANY hpf
[2024-07-13] MEDS ORDERED: MACRODANTIN100 MG PO (22:25)
[2024-07-13] MEDS ORDERED: NITROFURANTOIN 100 MG/CAP PO ONE (22:30)
[2024-07-14] VITALS: BP 133/78
[2024-07-15] MEDS ORDERED: MACROBID100 M1 PO (17:10)
--- NOTE | 2024-07-15 18:00 | NUR ---
SPOKE TO CHEMISTRY RESEARCH ASSISTANT OF PT AND INFORMED TO STOP MACRODANTIN AND START MACROBID. SEMT IN RX FOR MACROBID. CHEMISTRY RESEARCH ASSISTANT STATES SHE WILL STOP CURRENT MACRODANDIN AND WILL FORMING PROCESS WORKER AND START MACROBID
== END 2024-07-14 | disposition home or self-care (01) ==
LOC: ED 17:50
PROVIDERS: Nurse Practitioner
DX: N39.0 Urinary tract infection, site not specified (principal); B96.1 Klebsiella pneumoniae [K. pneumoniae] as the cause of diseases classified elsewhere; I11.0 Hypertensive heart disease with heart failure; I50.9 Heart failure, unspecified; E11.9 Type 2 diabetes mellitus without complications; G20.A1 Parkinson's disease without dyskinesia, without mention of fluctuations; F02.B4 Dementia in other diseases classified elsewhere, moderate, with anxiety; F32.A Depression, unspecified; Z95.1 Presence of aortocoronary bypass graft; Z95.810 Presence of automatic (implantable) cardiac defibrillator; Z95.0 Presence of cardiac pacemaker
CPT/HCPCS: Q9967

== ENCOUNTER 2024-07-16 09:42 | Emergency (ER) | payer MEDICARE ==
[2024-07-16] VITALS (16 sets, daily range): BP systolic 119–149; BP diastolic 85–96
[~2024-07-16] VITALS: Ht 165.1 cm; Wt 63.0 kg
[~2024-07-16 09:42] MED LIST changes: +BAYER ASPIRIN E81 MG PO; +DILT-XR120 MG PO; +MACROBID100 M1 PO; +MACRODANTIN100 MG PO; +RYTARY 36.25-141 CAP PO
[2024-07-16 10:06] LABS: BASO% 0.1 % (0-3); HEMATOCRIT 37.9 % (37.0-47.0); HEMOGLOBIN 12.2 g/dl (12.0-16.0); IMMATURE GRANULOCYTES 0.2 % (0.0-5.0); MEAN CELL VOLUME 89.2 fL CALC (80.0-100.0); MEAN CORPUSCULAR HGB 28.7 pG CALC (26.0-32.0); MEAN CORPUSCULAR HGB CONC 32.2 g/dL CAL (32.0-36.0); MONO% 8.2 % (2-13); NEUT# 8.25 thou/uL (2.00-7.15); NEUT% 82.5 % (42-76); RED BLOOD COUNT 4.25 mill/uL (4.20-5.60); RED CELL DISTRI WIDTH 16.6 % (11.5-15.5)
[2024-07-16] MEDS ORDERED: traMADol HCL 50 MG/TAB PO ONE (10:15)
[2024-07-16 10:34] LABS: ALBUMIN 3.2 g/dL (3.2-5.0); BILIRUBIN, TOTAL 1.2 mg/dL (0.02-1.3); CREATININE 0.5 mg/dL (0.5-1.0)
[2024-07-16 10:37] LABS: POTASSIUM 3.7 mmol/l (3.5-5.1)
[2024-07-16] MEDS ORDERED: CIPROFLOXACN500 MG PO (11:09)
[2024-07-16] MEDS ORDERED: TRAMADOL HYDROC50 M1 PO (12:05)
== END 2024-07-16 13:50 | disposition home or self-care (01) ==
LOC: ED 09:42
PROVIDERS: Family Medicine
DX: R52 Pain, unspecified (principal); R11.0 Nausea; I11.0 Hypertensive heart disease with heart failure; I50.9 Heart failure, unspecified; E11.9 Type 2 diabetes mellitus without complications; G20.A1 Parkinson's disease without dyskinesia, without mention of fluctuations; G47.33 Obstructive sleep apnea (adult) (pediatric); F32.A Depression, unspecified; F41.9 Anxiety disorder, unspecified; Z95.1 Presence of aortocoronary bypass graft